=== PATIENT | male | born 1935 | race Caucasian/White ===

== ENCOUNTER 2016-12-01 23:31 | Emergency (ER) | payer MEDICARE, BC ==
[2016-12-02 00:17] LABS: Hematocrit 26 % (42-52); Hemoglobin 8.9 g/dl (14.0-18.0); Mean Corpuscular HGB Conc 34 g/dl (31-36); Mean Corpuscular Hemoglobin 32 pg (27-31); Mean Corpuscular Volume 94 fL (80-94); Mean Platelet Volume 7 um3 (7.4-10.4); Red Blood Count 2.81 10^6/ul (4.0-5.4); Red Cell Distribution Width 14 % (10.5-15); White Blood Count 7.2 10^3/ul (3.5-10.8)
[2016-12-02 00:33] LABS: Albumin 2.9 g/dL (3.2-5.2); BUN/Creatinine Ratio 24.1 (8-20); Calcium 8.4 mg/dL (8.6-10.3); EGFR African American 121.7 (>60); EGFR Non-African American 94.6 (>60); Magnesium 2.1 mg/dL (1.9-2.7); Potassium 3.5 mmol/L (3.5-5.0); Total Bilirubin 0.8 mg/dL (0.2-1.0); Total Protein 5.9 g/dL (6.4-8.9)
[2016-12-02 04:00] LABS: Urine Bilirubin Negative (Negative); Urine Glucose Negative (Negative); Urine Nitrite Negative (Negative)
--- NOTE | 2016-12-02 04:11 | ED ---
Agnes Carey SooYoung, scribed for Avery Pardo MD on 12/01/16 at 2351 . HPI Febrile Illness - HPI Summary HPI Summary: A 81 y/o M CHRISTINE presents to ED s/p aortic valve replacement last week with low- grade fever onset five days ago. Per , pt had valve replacement last week at [facility] and was released five days ago to [facility] for PT/OT. Per [facility]'s report, pt has been febrile since arrival five days ago, with maxT of 101.5 F recorded yesterday. Additionally, pt had high BP and low HR. - History of Current Complaint Chief Complaint: EDFever Time Seen by Provider: 12/01/16 23:40 Hx Obtained From: Patient, Family/Machine Packaging Technician, Medical Records Onset/Duration: Started Days Ago, Still Present Timing: Constant Initial Severity: Mild Current Severity: Mild Pain Intensity: 0 Pain Scale Used: 0-10 Numeric - Additional Pertinent History Primary Care Physician: MANPREET - Allergy/Home Medications Allergies/Adverse Reactions: Allergies Allergy/AdvReac Type Severity Reaction Status Date / Time No Known Allergies Allergy Verified 12/20/15 15:04 PMH/Surg Hx/FS Hx/Imm Hx Previously Healthy: No Cardiovascular History: Reports: Hx Angina, Hx Cardiomegaly, Hx Coronary Artery Disease, Hx Hypercholesterolemia, Hx Hypertension, Hx Valvular Heart Disease - aortic valve insufficiency, moderate to severe mitral regurgitation Denies: Hx Pacemaker/ICD GI History: Reports: Hx Gastroesophageal Reflux Disease, Other GI Disorders - constipation History: Reports: Hx Benign Prostatic Hyperplasia Sensory History: Reports: Hx Contacts or Glasses Denies: Hx Hearing Aid Opthamlomology History: Reports: Hx Contacts or Glasses Psychiatric History: Denies: Hx Panic Disorder - Surgical History Surgery Procedure, Year, and Place: GALLBLADDER. CATARACTS. OPEN HEART 1997 Infectious Disease History: No Infectious Disease History: Denies: Traveled Outside the [place] in Last 30 Days - Family History Known Family History: Positive: Cardiac Disease - parents and grandparents, Other - stroke - Social History Occupation: Retired Lives: With Family Alcohol Use: None Alcohol Amount: wine before dinner, a few times a week Substance Use Type: Reports: None Smoking Status (MU): Never Smoked Tobacco Review of Systems Positive: Fever Positive: Other - pos: high BP, low HR per [facility] report All Other Systems Reviewed And Are Negative: Yes Physical Exam Triage Information Reviewed: Yes Vital Signs On Initial Exam: Initial Vitals Temp Pulse Resp BP Pulse Ox 98.8 F 89 20 135/72 93 12/01/16 23:40 12/01/16 23:40 12/01/16 23:40 12/01/16 23:40 12/01/16 23:40 Vital Signs Reviewed: Yes Appearance: Positive: Well-Appearing, No Pain Distress Skin: Positive: Warm, Other - healing surgical composite bond technician/Face: Positive: Normal Head/Face Inspection Eyes: Positive: HERBERT ENT: Positive: Hearing grossly normal Neck: Positive: Supple, Nontender Respiratory/Lung Sounds: Positive: Clear to Auscultation, Breath Sounds Present Cardiovascular: Positive: RRR Abdomen Description: Positive: Nontender, Soft Bowel Sounds: Positive: Present Musculoskeletal: Positive: Strength/ROM Intact Neurological: Positive: Alert, Oriented to Person Place, Time Psychiatric: Positive: Affect/Mood Appropriate Diagnostics - Vital Signs Vital Signs Temp Pulse Resp BP Pulse Ox 12/01/16 23:50 99.1 F 12/01/16 23:44 98.8 F 88 16 135/72 94 12/01/16 23:40 98.8 F 89 20 135/72 93 - Laboratory Result Diagrams: 12/02/16 00:05 12/02/16 00:05 Lab Statement: Any lab studies that have been ordered have been reviewed, and results considered in the medical decision making process. - Radiology CXR Xray Interpretation: No Acute Changes Radiology Interpretation Completed By: ED Physician - EKG 0043 Cardiac Rate: NL - 77bpm EKG Rhythm: Sinus Rhythm ST Segment: Normal - no STEMI Re-Evaluation - Re-Evaluation 1 Re-Evaluation Time: 04:27 Change: Improved Comment: Discussing results and dispo with pt and family. Course/Dx - Course Course Of Treatment: Pt is a 81 y/o M BIBA presenting s/p aortic valve replacement last week with low-grade fever onset five days ago. Per , pt had valve replacement last week at [facility] and was released five days ago to [facility] for PT/OT. Per [facility]'s report, pt has been febrile since arrival five days ago, with maxT of 101.5 F recorded yesterday. Blood work and lab results are without significant abnormalities. EKG is NSR no STEMI. CXR is nml. UA is nml except ascorbic acid is present. Will D/C pt home to f/u with PCP tomorrow. - Diagnoses Provider Diagnoses: Fever Discharge - Discharge Plan Condition: Stable Disposition: HOME Patient Education Materials: Fever in Adults (ED) Referrals: Daron Lester MD [Primary Care Provider] - 1 Day Additional Instructions: Follow up with your primary care provider tomorrow. Please return to ED if you experience new or worsening symptoms. The documentation as recorded by the Agnes persaud SooYoung accurately reflects the service I personally performed and the decisions made by me, Avery Pardo MD.
[2016-12-02] MEDS ORDERED: Acetaminophen TAB* 325 MG ONE (04:51)
[2016-12-02] MEDS ORDERED: Acetaminophen TAB* 325 MG PO ONE (04:56)
[2016-12-02 05:00] VITALS: BP 135/57
--- NOTE | 2016-12-02 07:50 | RAD ---
HISTORY: Postop fever COMPARISONS: December 20, 2015 VIEWS: 4: Frontal dual-energy and lateral views of the chest. FINDINGS: CARDIOMEDIASTINAL SILHOUETTE: The cardiomediastinal silhouette is normal. ABDIRASHID: The abdirashid are normal. PLEURA: There is blunting of the costophrenic angles. LUNG PARENCHYMA: There is hyperinflation with flattening of the diaphragm and expansion of the AP diameter of the chest. ABDOMEN: The upper abdomen is clear. There is no subphrenic gas. BONES AND SOFT TISSUES: The patient is status post median sternotomy. OTHER: None. IMPRESSION: 1. COPD. 2. SMALL BILATERAL PLEURAL EFFUSIONS VERSUS CHRONIC PLEURAL THICKENING.
== END 2016-12-02 04:45 | disposition home or self-care (01) ==
LOC: ED 23:31
DX: J44.9 Chronic obstructive pulmonary disease, unspecified (principal); J90 Pleural effusion, not elsewhere classified; R50.9 Fever, unspecified
CPT/HCPCS: 36415; 71020; 80053; 81003; 83605; 83735; 85025; 87040; 93005; 99284; A9270-GY

== ENCOUNTER 2017-12-14 16:41 | Observation (INO) | payer MEDICARE, BC ==
[2017-12-14] MEDS ORDERED: NS 0.9% 1000 ML* 1,000 ML IV ONE (16:50)
--- NOTE | 2017-12-14 17:02 | ED ---
Neurological HPI - HPI Summary HPI Summary: Neurologist saw patient in room at 1654. This patient is an 82 year old M presenting to ED with a chief complaint of neurological deficit since around 1200 today. The CC is described as his balance being unsteady and his sx has progressively worsened at 1200. The patient rates the pain 0/10 in severity. Symptoms aggravated by nothing. Symptoms alleviated by nothing. Patient reports bilateral arm pain, light- headedness, and visual changes (unable to read, worsened after 1200). Patient denies numbness and weakness, any recent falls, CP, and SOB. Patient uses a cane. PMHx of TIA; no afib. - History of Current Complaint Chief Complaint: EDNeurologicalDeficit Stated Complaint: UNABLE TO AMBULATE Time Seen by Provider: 12/14/17 16:52 Hx Obtained From: Patient Onset/Duration: Sudden Onset - at 1200 today, Still Present Timing: Constant Current Severity: None Pain Intensity: 0 Pain Scale Used: 0-10 Numeric Aggravating: Nothing Alleviating: Nothing Associated Signs and Symptoms: Positive: Nothing - Patient reports bilateral arm pain, light-headedness, and visual changes (unable to read, worsened after 1200). Patient denies numbness and weakness, any recent falls, CP, and SOB. - Additional Pertinent History Primary Care Physician: [id number] - Allergy/Home Medications Allergies/Adverse Reactions: Allergies Allergy/AdvReac Type Severity Reaction Status Date / Time No Known Allergies Allergy Verified 12/14/17 16:49 Home Medications: Home Medications Aspirin EC TAB* [Ecotrin EC Low Dose 81 MG*] 81 mg PO QAM 12/14/17 [History Confirmed 12/14/17] C,E,Zinc,Copper 11/Lyuco3n/Lut [Ocuvite Adult 50 Plus Softgel] 1 cap PO QAM [History Confirmed 12/14/17] Cholecalciferol (Vitamin D3) [Vitamin D3] 1,000 unit PO DAILY 12/14/17 [History Confirmed 12/14/17] Finasteride TAB* [Proscar TAB*] 5 mg PO QAM 12/14/17 [History Confirmed 12/14/17 ] Losartan TAB* [Cozaar TAB*] 50 mg PO QAM 12/14/17 [History Confirmed 12/14/17] Lutein 20 mg PO QAM 12/14/17 [History Confirmed 12/14/17] Metoprolol Tartrate TAB* [Lopressor TAB*] 12.5 mg PO BID 12/14/17 [History Confirmed 12/14/17] Nystatin CREAM* [Nystatin Cream*] 1 applic TOPICAL BID 12/14/17 [History Confirmed 12/14/17] Omeprazole CAP* [Prilosec CAP* 20 MG] 40 mg PO BID 12/14/17 [History Confirmed 12/14/17] Ranolazine (NF) [Ranexa (NF)] 1,000 mg PO BID 12/14/17 [History Confirmed ] Rosuvastatin (NF) [Crestor (NF)] 5 mg PO QAM 12/14/17 [History Confirmed ] Terazosin CAP* [Hytrin CAP*] 10 mg PO QPM 12/14/17 [History Confirmed 12/14/17] amLODIPine TAB* [Norvasc 5 mg TAB*] 5 mg PO QPM 12/14/17 [History Confirmed ] PMH/Surg Hx/FS Hx/Imm Hx Cardiovascular History: Reports: Hx Angina, Hx Cardiomegaly, Hx Coronary Artery Disease, Hx Hypercholesterolemia, Hx Hypertension, Hx Valvular Heart Disease - aortic valve insufficiency, moderate to severe mitral regurgitation Denies: Hx Pacemaker/ICD GI History: Reports: Hx Gastroesophageal Reflux Disease, Other GI Disorders - constipation History: Reports: Hx Benign Prostatic Hyperplasia Sensory History: Reports: Hx Contacts or Glasses Denies: Hx Hearing Aid Opthamlomology History: Reports: Hx Contacts or Glasses Psychiatric History: Denies: Hx Panic Disorder - Surgical History Surgery Procedure, Year, and Place: GALLBLADDER. CATARACTS. OPEN HEART 1997 Infectious Disease History: No Infectious Disease History: Denies: Traveled Outside the [place] in Last 30 Days - Family History Known Family History: Positive: Cardiac Disease - parents and grandparents, Other - stroke - Social History Alcohol Use: None Alcohol Amount: wine before dinner, a few times a week Substance Use Type: Reports: None Smoking Status (MU): Never Smoked Tobacco Review of Systems Positive: Other - visual changes (unable to read) Negative: Chest Pain Negative: Shortness Of Breath Positive: Other - bilateral arm pain; denies any recent falls Neurological: Other - unsteady balance, light-headedness Negative: Weakness, Numbness All Other Systems Reviewed And Are Negative: Yes Physical Exam - Summary Physical Exam Summary: Appearance: Well appearing, no pain distress Skin: warm, dry, reflects adequate perfusion Head/face: normal Eyes: EOMI, HERBERT ENT: normal Neck: supple, non-tender Respiratory: CTA, breath sounds present Cardiovascular: pulses symmetrical, Blowing systolic murmur Abdomen: non-tender, soft Bowel Sounds: present Musculoskeletal: normal, strength/ROM intact Neuro: normal, sensory motor intact, A&Ox3, unsteady gait, mild ataxia NIH score is 0 GCS 15 Triage Information Reviewed: Yes Vital Signs On Initial Exam: Initial Vitals Temp Pulse Resp BP Pulse Ox 98 F 55 16 136/69 96 12/14/17 16:45 12/14/17 16:45 12/14/17 16:45 12/14/17 16:45 12/14/17 16:45 Vital Signs Reviewed: Yes Diagnostics - Vital Signs Vital Signs Temp Pulse Resp BP Pulse Ox 12/14/17 16:45 98 F 55 16 136/69 96 - Laboratory Result Diagrams: 12/14/17 17:07 12/14/17 17:07 Lab Statement: Any lab studies that have been ordered have been reviewed, and results considered in the medical decision making process. - Radiology CXR Radiology Interpretation Completed By: ED Physician - No acute disease. Pending radiologist official interpretation. See Red Venturestech. - CT Brain CT CT Interpretation Completed By: Radiologist - No intracranial mass or hemorrhage is noted. ED physician has reviewed this radiology report. C-spine CT CT Interpretation Completed By: Radiologist - No fracture of the cervical spine is identified. ED physician has reviewed this radiology report. - EKG 1801 Cardiac Rate: Bradycardia - 55 BPM EKG Rhythm: Sinus Bradycardia ST Segment: Non-Specific EKG Interpretation: normal axis, low voltage, long QT NIH Scale - NIH Scale Level of Consciousness: Alert/Keenly Responsive Ask Patient the Month and His/Her Age: Both Correct Ask Pt to Open/Close Eyes and Theology Teacher/Release Non-Paretic Hand: Both Correctly Best Gaze (Only Horizontal Eye Movement): Normal Visual Field Testing: No Visual Loss Facial Paresis-Pt to Smile & Close Eyes or Grimace Symmetry: Normal/Symmetrical Motor Function - Right Arm: No Drift-Holds 10 Seconds Motor Function - Left Arm: No Drift-Holds 10 Seconds Motor Function - Right Leg: No Drift-Holds 10 Seconds Motor Function - Left Leg: No Drift-Holds 10 Seconds Limb Ataxia-Must be out of Proportion to Weakness Present: Absent Sensory (Use Pinprick to Test Arms/Legs/Trunk/Face): Normal Best Language (Describe Picture, Name Items): No Aphasia Dysarthria (Read Several Words): Normal Extinction and Inattention: No Abnormality Total Score: 0 Course/Dx - Course Course Of Treatment: Patient presents with worsening ataxia since noon today. This appears to be an acute worsening of her chronic condition. Neurology evaluated the patient on arrival to the department. His NIH stroke score is 0. Neurology found that he had some sensory differences between left and right and wish to have a neck CT performed as well. Remainder laboratories are noncontributory. Neurology recommended observation and the patient was admitted through the hospitalist service in stable condition. - Differential Dx Differential Diagnoses Neuro: Positive: Other - CVA/TIA, Lyme disease, hypovolemia, vertigo, medication reaction - Diagnoses Provider Diagnoses: Ataxia, Generalized weakness - Physician Notifications Discussed Care Of Patient With: Noe Grissom Time Discussed With Above Provider: 18:28 Instructed by Provider To: Other - Consulted Dr. Grissom who accepts the patient for admission. Discharge - Sign-Out/Discharge Documenting (check all that apply): Patient Departure - Discharge Plan Condition: Fair Disposition: TRANSFER TO OB ([facility]) - Billing Disposition and Condition Condition: FAIR Disposition: Transfer to OB ([facility]) - Attestation Statements Document Initiated by Scribe: Yes Documenting Scribe: Ravinder Melgar Provider For Whom Marnie is Documenting (Include Credential): Jaxson Coleman MD Scribe Attestation: Ravinder Carey, scribed for Jaxson Coleman MD on 12/14/17 at 1923. Scribe Documentation Reviewed: Yes Provider Attestation: The documentation as recorded by the Ravinder persaud accurately reflects the service I personally performed and the decisions made by , Jaxson Coleman MD
[2017-12-14 17:16] LABS: ABS Basophils 0 10^3/ul (0-0.2); ABS Eosinophils 0 10^3/ul (0-0.6); ABS Lymphocytes 0.6 10^3/ul (1.0-4.8); ABS Monocytes 0.3 10^3/ul (0-0.8); ABS Neutrophils 3.9 10^3/ul (1.5-7.7); ABS Nucleated RBC 0 10^3/ul; Eosinophil % 0.5 % (0-6); Hematocrit 37 % (42-52); Hemoglobin 12.8 g/dl (14.0-18.0); Lymphocyte % 11.9 % (25-47); Mean Corpuscular HGB Conc 34 g/dl (31-36); Mean Corpuscular Hemoglobin 32 pg (27-31); Mean Corpuscular Volume 94 fL (80-94); Mean Platelet Volume 7.3 um3 (7.4-10.4); Nucleated Red Blood Cells % 0; Platelet Count 146 10^3/ul (150-450); Red Blood Count 3.95 10^6/ul (4.00-5.40); Red Cell Distribution Width 12 % (10.5-15); White Blood Count 4.8 10^3/ul (3.5-10.8)
[2017-12-14 17:22] LABS: INR 1.07 (0.77-1.02)
[2017-12-14 17:32] LABS: EGFR Non-African American 80.2 (>60)
--- NOTE | 2017-12-14 17:56 | RAD ---
Indication: Ataxia. CT of the brain was performed without IV contrast. Ventricular structures are midline. No midline shift is noted. The extra-axial spaces are unremarkable. There is no evidence of intracranial mass or hemorrhage. No other high or low density lesions are identified. When compared to previous exam of December 20, 2015 no significant change is noted. Mastoid air cells and paranasal sinuses are otherwise unremarkable. Overall no changes noted since previous exam December 20, 2015. IMPRESSION: No intracranial mass or hemorrhage is noted.
--- NOTE | 2017-12-14 17:57 | RAD ---
Indication: Ataxia, sensory changes. CT of the cervical spine was obtained in the axial plane. Sagittal and coronal reconstructed images were obtained. The skull base demonstrates no evidence of fracture. C1 ring is intact. The vertebral bodies appear normal in height and alignment with no spondylolisthesis. No fracture is identified. There is mild degenerative disc disease at C3-C4. No central or foraminal stenosis is noted. The remainder of the cervical spine demonstrates no fracture. All the intervertebral foramen appear patent. IMPRESSION: No fracture of the cervical spine is identified.
[2017-12-14] MEDS ORDERED: Acetaminophen TAB* 325 MG PO PRN (18:37)
[2017-12-14] MEDS ORDERED: Ondansetron INJ* 2 MG/ML VIAL IV PRN (18:37)
[2017-12-14] MEDS ORDERED: Nitroglycerin TAB 0.4 MG* 0.4 MG TAB SL PRN (18:39)
[2017-12-14] MEDS ORDERED: Enoxaparin(*) 40 MG/0.4 ML SYR SUBCUT SCH ×2 (19:00→22:00)
[2017-12-14] MEDS ORDERED: Gadoteridol* (CONTRAST) 279.3 MG/ML 10 ML IV ONE (20:36)
[2017-12-14] MEDS ORDERED: Ranolazine (NF) 500 MG TAB PO SCH (21:00)
[2017-12-14] MEDS ORDERED: Gadobenate* (CONTRAST) 529 MG/ML 10 ML SDV IV ONE (21:08)
--- NOTE | 2017-12-14 21:18 | CONS ---
NEUROLOGY CONSULTATION REPORT: DATE OF CONSULT: 12/14/17 Dallin Manzanares was called due to concern of acute ataxia. CHIEF COMPLAINT: Sudden onset of balance trouble. PRIMARY ER ATTENDING: Dr. Jaxson Coleman. HISTORY OF PRESENT ILLNESS: Mr. Jayy Kee is an 82-year-old right-handed man with history of TIA 1 year ago and reported stroke with similar presentation 2 years ago, who presented to [facility] after onset of gait imbalance. The patient has been having trouble with his gait over the last 6 months. He saw a neurologist in [place] in July of 2017 for balance problems. The neurologist had told him that there is some degeneration of the nerves in the lower extremity but no further workup or recommendation was made. The patient was working in his barn all day yesterday. He then went to the barn today and was working for about an hour when suddenly he closed the barn and went back in the house at around 12 o'clock. His was surprised because he typically works in the barn up until 4 p.m. When asked what is going on, the patient stated that he keeps swaying towards a nonspecific side and feeling like he is about to fall. He does feel lightheaded. He has trouble going up the steps when reaching up above his head because every time he goes up the step , he feels that he is going to fall. He was given a cane for support, which is very unusual for him. The patient then went to his room and his left the house for about an hour. When she came back, the patient was in the bathroom and he was having trouble walking back to the bedroom. This has never happened before and it alerted the patient's spouse, who immediately brought the patient to the ED. The patient denied any focal weakness or paresthesias. The patient denied any headache, double vision, or blurry vision. The patient is on aspirin regularly. The patient stated that he has had similar presentation in the past and he was diagnosed with a stroke at that time. I reviewed the patient's MRI from 2015. There is no evidence of any large ischemic or hemorrhagic infarction, but he does have nonspecific small vessel disease with diffuse atrophy. He denied any neck pain or low back pain. He denied any numbness or tingling sensation in the hands or feet. The patient has had progressive memory loss over the last 1 year. He is forgetting objects, names. He was having trouble reading his book today, which he enjoys doing on a daily basis. PAST MEDICAL HISTORY: The patient had a history of TIA, stroke, coronary artery disease, [id number] mitral regurgitation, aortic valve replacement, BPH, GERD. PAST SURGICAL HISTORY: He had cataract surgery, cholecystectomy, tonsillectomy , CABG in 1996, and had an aortic valve replacement last year. MEDICATIONS: 1. Nitroglycerin. 2. Terazosin 10 mg p.o. q.p.m. 3. Rosuvastatin 5 mg p.o. q.a.m. 4. Ranolazine 1000 mg p.o. twice daily. 5. Omeprazole 40 mg p.o. b.i.d. 6. Nystatin 1 application topical b.i.d. 7. Metoprolol 12.5 mg p.o. b.i.d. 8. Lutein 20 mg capsule. 9. Losartan 50 mg p.o. q.a.m. 10. Finasteride 5 mg p.o. q.a.m. 11. Aspirin 81 mg p.o. q.a.m. 12. Amlodipine 5 mg p.o. q.p.m. 13. Vitamin D 1000 units p.o. daily. ALLERGIES: No known drug allergies. FAMILY HISTORY: No family history of stroke or seizures. SOCIAL HISTORY: The patient is retired. He denied any recent tobacco or alcohol use. He is and he lives with his spouse. He does drink wine at dinner. REVIEW OF SYSTEMS: A 14-point review of systems was obtained and otherwise negative except for what was mentioned in the HPI. PHYSICAL EXAM: Vital Signs: Temperature of 98, pulse 55, respiratory rate of 16, oxygen saturation 96%, blood pressure of 136/69. General: Well-nourished, well- developed man, in no acute distress. Head is normocephalic, atraumatic. Eyes: Conjunctivae/corneas are clear. Neck is supple and symmetrical with no carotid bruit. Lungs are clear to auscultation bilaterally. Cardiovascular: Regular rhythm. Normal S1, S2. Extremities: Normal range of motion with no cyanosis. Skin: No skin lesions or laceration. Psych: Affect is broad and normal mood. Neurological Examination: Mental Status: Awake, alert, and oriented to person, place, time, and general circumstances. Speech and language including expression, naming, repetition, and comprehension were assessed and found to be normal. The patient does have trouble with memory recall, could not spell the word world backwards, could not calculate. Cranial Nerves: Normal confrontation bilaterally. Pupils are mid range and reactive to light. Normal consensual response. Sensation is intact on the forehead, cheeks , and jaw region. There is no facial droop. He is able to hear throughout the history process. Symmetrical palate elevation. Normal strength against resistance. Tongue is symmetrical and midline with no atrophy. Motor Examination: No abnormal movements or pronator drift. Normal bulk and tone throughout. There is no fasciculation. He has got good range of motion with normal strength throughout all 4 extremities. Reflexes: Right/left, brachioradialis 2/2, biceps 2/2, triceps 1/1, patella is 1/1, ankle 0/0. Plantar, flexor/flexor. Sensation is intact to light touch throughout. He does have a distal to proximal gradient demarcated around the knees bilaterally. He has absent vibration at the great toes, which is normal for age but proprioception is intact. Coordination: Normal [id number]. Gait: Wide-based, hesitant, cautious gait but no ataxia. LABORATORY DATA: WBC 4.8, hemoglobin 12.8, hematocrit 37. LDL 82, HDL 55, cholesterol 156. Sodium 134, potassium 4.2, chloride 104, creatinine 0.91. ASSESSMENT AND PLAN: Mr. Jayy Kee is an 82-year-old man with history of coronary artery disease, reported stroke, and transient ischemic attacks in the past, who presented with an acute on chronic gait imbalance. The patient suddenly had trouble with ambulation and felt off balance at approximately 12 a.m. today. NIH Stroke Scale was 0. Therefore, he is not a candidate for IV tPA or mechanical thrombectomy. I suspect that the patient possibly has underlying neuropathy that is contributing to his gait disturbance. However, the acuity of his gait off balance makes me concern for a possible intracranial problem such as a cerebellar infarction. I recommend obtaining an MRI of the brain, MRA of the head without contrast. Please obtain a transthoracic echo to look for any atrial thrombus. In addition, please obtain a PT/OT evaluation and treatment. The patient may be dehydrated as he was complaining of lightheadedness prior to these episodes, so therefore, please start him on IV fluids, possibly given him 1 L over the next 10 hours. Continue aspirin therapy for now until we further work up the cause of his neurological deficits. Interestingly, he did have a sensory level around the C7 to C8 region on the left side. If the intracranial workup is negative, then we will proceed with evaluating for possible cervical spinal stenosis due to cervical spondylosis. I also suspect the patient has dementia given his progressive memory loss over the last 1 year. In patients with dementia, there could be gait abnormality such as abasia-estasia but I do not think this will be an acute onset. . Please complete the workup by obtaining TSH, free T4, vitamin B12, hemoglobin A1c to evaluate for secondary cause of neuropathy. TIME SPENT: I spent a total of 70 minutes and greater than 50% of that was spent directly reviewing the medical chart, obtaining history, examining the patient, education counseling, and discussing the treatment plan as discussed above. I will continue to follow. The patient is pending a CT head and a CT neck for further evaluation. [id number]/[facility] #: [id number] [facility]
--- NOTE | 2017-12-14 21:28 | RAD ---
EXAM: MR Head Without Intravenous Contrast CLINICAL HISTORY: 82 years old, male; Signs and symptoms; Dizziness and walking, difficulty; Patient HX: C/O acute onset of dizziness, unsteady gait and difficulty walking at noon today. Symptoms resolved at this time; Additional info: Concern for CVA. Pt is very kyphotic- unable to fit anterior portion of head coil- was only able to fit csp coil-some loss of anterior signal TECHNIQUE: Magnetic resonance images of the head/brain without intravenous contrast in multiple planes. COMPARISON: MRAHEAD WO MRA HEAD W/O 12/14/2017 8:24 PM FINDINGS: Brain: No acute infarct. There are small rounded SWI signal in the left occipital and parietal lobe likely representing chronic microhemorrhages. Minimal T2/flair hyperintensities in the periventricular region consistent with chronic microvascular ischemic changes. Ventricles: Unremarkable. No ventriculomegaly. Bones/joints: Unremarkable. Sinuses: Unremarkable as visualized. No acute sinusitis. Mastoid air cells: Mastoid air cells effusions right greater than left. Orbits: Bilateral cataract surgery. Other findings: No acute hemorrhage. IMPRESSION: No acute infarct or hemorrhage. Small rounded SWI signal in the left occipital and parietal lobe likely representing chronic microhemorrhages. Minimal chronic microvascular ischemic changes. Bilateral mastoid air cell effusions, right greater than left.
--- NOTE | 2017-12-14 21:47 | PN ---
Progress Note - Progress Note Date of Service: 12/14/17 Note: Discussed finding of chronic microhemorrhages on MRI with Dr Grissom, neurology who advised against use of dual anti-platelet therapy, but agreed with continuing his aspirin & DVTp enoxaparin.
[2017-12-14] MEDS: NS 0.9% 1000 ML* 1,000 ML IV SCH (22:32)
[2017-12-14] MEDS: Omeprazole CAP* 20 MG PO SCH (22:35)
[2017-12-14] MEDS: Metoprolol Tartrate TAB* 25 MG PO SCH (22:35)
[2017-12-14] MEDS: CMCS Ranolazine (NF) 500 MG TAB PO SCH (22:50)
--- NOTE | 2017-12-15 00:04 | HP ---
CC: Dr. Lester; Dr. Avery Powers. * ADMISSION HISTORY AND PHYSICAL: DATE OF ADMISSION: 12/14/17 PRIMARY CARE DOCTOR: Dr. Lester. OUTPATIENT NEUROLOGIST: Dr. Avery Powers. ATTENDING PROVIDER: Dr. Chávez * (DICTATED BY JOHANNY MCGARRY) CHIEF COMPLAINT: Loss of balance. HISTORY OF PRESENT ILLNESS: Mr. Kee is an 82-year-old male with past medical history significant for coronary artery disease, carotid stenosis, hypertension, hyperlipidemia, and idiopathic neuropathy, who presents to the emergency permit with 6 months of worsening balance issues, which became acutely worse approximately around noon today with inability to keep balance, inability to climb ladders and constant feeling as if he is going to fall. The patient denies any diane vertigo, nausea, vomiting, focal weakness, palpitations , shortness of breath, or chest pain. The patient did have an episode of chest pain last week, which he took nitroglycerin, which promptly resolved this. The patient had to take nitroglycerin relatively frequently for chest pain more in the spring when he is in [place], but this most recent episode was the first time in approximately 6 months he has to take it. The patient had a TIA in [place] in May 2015 and at that time had a rather extensive evaluation he describes, but there were no discrete findings that he can remember. The patient then had a stroke in November 2015, for which he received TPA, where his symptoms mainly resolved, which include expressive aphasia and balance issues. The patient underwent physical therapy after that for balance and now feels like until 6 months ago he was back to his baseline. The patient was seen by a vascular surgeon at [place] after his stroke and no intervention was recommended, according to the family. The patient today denies any recent illnesses. The patient drinks several bottles of water a day. The patient drinks 1 glass of alcohol in the evening. The patient recently was recommended by Dr. Gallardo, his primary care doctor while he is in [place] to stop his Plavix this spring. It is unclear the reasoning for this besides that he has already on aspirin for antiplatelet therapy and it had been over 8 years since his recent stroke. The patient has been having worsening issues with memory loss. The patient has had no other acute episodes like this. The patient had no other focal deficits including word finding difficulty or facial droop. The patient was exerting himself significantly including carrying ladders around his barn when these symptoms developed. Due to concern for TIA, we were asked to evaluate the patient for admission. The patient describes today earlier in the morning before he had the most overt symptoms of dizziness, an inability to read due to possible double vision, which he states has resolved at this point, has never occurred before. PAST MEDICAL HISTORY: Coronary artery disease, BPH, GERD, neuropathy, hyperlipidemia, hypertension, dementia, squamous cell carcinoma, aortic regurgitation, status post aortic valve placement in October 2016. PAST SURGICAL HISTORY: CABG in 1996, cholecystectomy, cataract surgery, tonsillectomy, open heart aortic valve placement in October 2016. MEDICATIONS: 1. Nitroglycerin 0.4 mg p.o. q.5 minutes as needed for angina. 2. Terazosin 10 mg p.o. daily. 3. Rosuvastatin 5 mg p.o. daily. 4. Ranexa 1000 mg b.i.d. 5. Omeprazole 40 mg b.i.d. 6. Nystatin cream 1 application topical b.i.d. 7. Ocuvite 1 tab p.o. daily. 8. Metoprolol tartrate 12.5 mg b.i.d. 9. Lutein 20 mg p.o. b.i.d. 10. Losartan 50 mg p.o. daily. 11. Finasteride 5 mg p.o. daily. 12. Aspirin 81 mg p.o. daily. 13. Amlodipine 5 mg p.o. daily. 14. Vitamin D3 1000 units p.o. daily. ALLERGIES: No known drug allergies. FAMILY HISTORY: The patient's father had coronary artery disease and stroke. The patient's mother had coronary artery disease, as does his grandparents. The patient has no other known medical history in his siblings or children. SOCIAL HISTORY: The patient has never smoked. The patient drinks 3 to 4 alcoholic beverages a week. The patient denies illicit drug use. 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 The patient is and has 2 children. The patient would like his surrogate decision maker to be his , Codie Kee. REVIEW OF SYSTEMS: A 14 point review of systems was reviewed and is negative except as above. PHYSICAL EXAMINATION GENERAL: The patient is an 82-year-old male who appears stated age, sitting comfortably in bed, in no distress. VITAL SIGNS: At the time of evaluation, temperature 98.0, pulse rate 55, respirations 16, oxygen saturate 96% on room air, blood pressure 136/69. HEENT: Head normocephalic, atraumatic. Sclerae anicteric. No conjunctival injection. Nasal mucosa moist. Oral mucosa moist. No pharyngeal erythema, discharge or exudate NECK: Supple, nontender. No lymphadenopathy. No carotid bruits auscultated. No JVD. RESPIRATORY: Clear to auscultation bilaterally. No wheezes, rales or rhonchi. Good air exchange bilaterally. CARDIAC: Grade 2/6 systolic ejection murmur, heard best at the right upper sternal border. No other clicks, murmurs, gallops or rubs. Pulses 2+ in bilateral dorsalis pedis, posterior tibialis, and radial areas. Trace bilateral lower extremity edema noted. ABDOMEN: Soft, nontender, nondistended. Bowel sounds present. Normoactive in all 4 quadrants. No hepatosplenomegaly. No abdominal bruits auscultated. No hepatojugular reflux. NEUROLOGIC: Cranial nerves II through XII intact. No nystagmus. No focal field deficit to confrontation. No diplopia. No esotropia. Symmetrical forehead wrinkling. No facial droop. Strength 4-/5 throughout the patient's muscle group distally and proximally. Sensation intact to light touch and bilaterally upper and lower extremities distally and proximally. Reflexes 1+ on bilateral biceps and patellar areas, absent in the Achilles area. Babinski is downgoing bilaterally. [id number] and rapid finger taps performed without difficulty. The patient is not ataxic in his gait. The patient is unable to walk on his heels or toes. SKIN: Senile purpura. No other rash. PSYCHIATRIC: Pleasant and cooperative. DIAGNOSTIC STUDIES/LAB DATA: White blood cells 4.0, hemoglobin 12.8, platelet count 146, INR 1.07, APTT 30.1. Sodium 134, potassium 4.2, chloride 104, carbon dioxide 24, anion gap 16, BUN 12, creatinine 0.91, glucose 105, lactic acid 0.6, calcium 9.1, bilirubin 0.7, AST 17, ALT 13, alkaline phosphatase 61, troponin I 0.00, protein 6.6, albumin 4.1, globulin 2.5, triglycerides 93, cholesterol 156, LDL cholesterol 82, HDL cholesterol 55.9, serum alcohol less than 10. STUDIES: Chest x-ray shows no active cardiopulmonary disease, status post thoracotomy. EKG shows normal sinus rhythm. No ST segment abnormalities, possible left atrial enlargement. No other hypertrophy. Normal R-wave progression, rate of 55, QTc of 506. No other abnormalities. Similar to previous exam. Cervical spine CT read as no fractures of cervical spine identified. Brain CT from 12/14/17 read as no intracranial mass or hemorrhage. ASSESSMENT PLAN AND IMPRESSION: Mr. Kee is an 82-year-old male with past medical history significant for coronary artery disease, carotid artery stenosis , hypertension, aortic stenosis, hyperlipidemia, hypertension and mild dementia who presents to the emergency department for his third episode of possible cerebrovascular disease in the past 3 years. The patient has no residual deficits at this point. The patient will be admitted to the hospital for a brain MRI, MRA of his neck carotid ultrasound, transthoracic echocardiogram, and ongoing neurological consultation. 1. Possible transient ischemic attack. The patient has had rather abrupt onset of unsteadiness, which has been going on for 6 months in a worsening pattern, but got acutely worse today with the feeling of unsteadiness without diane vertigo. The patient has no signs of cerebrovascular accident on his CT of his brain. The patient's symptoms seem at this point to have resolved. The patient has known atherosclerotic vascular disease. The patient's symptoms are unlikely due to his carotid stenosis. The patient might have had issues of subclavian steal. The patient will have a MRI of his head and neck as well as carotid ultrasound. It is unlikely the patient's symptoms are due to thromboembolic disease; however, he was monitored on telemetry and have an echocardiogram to assess for the functioning of his valves as well as assess for patent foramen ovale or clot in the left atrial appendage. The patient will not be anticoagulated at this time. The patient will be continued on aspirin. The patient was recently told to stop his Plavix due to the coronary artery disease, consideration for Plavix pending the results of the MRI and the MRA from the morning will be considered. The patient will have neurological checks, dysphagia screening. The patient's symptoms may be related to hypovolemia, felt due to his exertion. The patient had 1 L of normal saline in the emergency department and we will have 2 more. The patient will be continued on his blood pressure medication. He is currently normotensive. The patient had a lipid profile, which unless a stroke is identified on his exam, is within normal limits. However, if the patient has an acute stroke, an LDL cholesterol goal 70 should be attempted to be reached. The patient will be continued on Crestor at 5 mg daily or formulary equivalent at this time. 2. Coronary artery disease. The patient will have a transthoracic echocardiogram. He will be continued on his aspirin, and Lipitor. The patient has negative troponin. The patient is not having chest pain. The patient will have nitroglycerin available if he does have chest pain while in the hospital. Further cardiologic evaluation should be entertained at that time, however, this is unlikely related to his current presentation. 3. Hypertension. Continue the patient's terazosin, amlodipine, losartan. The patient will have orthostatic vital signs performed due to presence of terazosin as possibly contributing to his dizziness, unsteadiness over the course of several months, though the patient has never had pre-syncope. 4. Benign prostatic hyperplasia. Continue terazosin and finasteride. The patient has been having worsening of his benign prostatic hyperplasia symptoms including urinary frequency and nocturia over the past several months. The patient will have a urinalysis. The patient does not have any signs of urinary retention or urinary tract infection. 4. Hyperlipidemia. Continue rosuvastatin as above. 5. Neuropathy. We will order hemoglobin A1c and a vitamin B12 level as these could be both be related to his current presentation. The patient was previously diagnosed with idiopathic neuropathy and further lab testing will be dependent on the results of the studies. 6. DVT prophylaxis. The patient will be on Lovenox for DVT prophylaxis. 7. Code status. The patient would like to be a full code. The patient's surrogate decision maker will be his , Codie Kee as above. 8. FEN. The patient will have fluids as above and a heart healthy diet without caffeine after he passes his dysphagia screening. 9. Disposition. The patient will be admitted to observation to the hospital. TIME SPENT: Approximately 75 minutes were spent on this admission, 45 minutes of which was spent [id number] with the patient obtaining history and physical and discussing treatment plan. The plan has been discussed with my attending, Dr. Chávez, and he is in agreement. JOHANNY MCGARRY [id number]/[facility] #: [id number] FERNANDO
[2017-12-15 06:20] LABS: ABS Basophils 0 10^3/ul (0-0.2); ABS Eosinophils 0.1 10^3/ul (0-0.6); ABS Monocytes 0.4 10^3/ul (0-0.8); ABS Nucleated RBC 0 10^3/ul; Eosinophil % 2.8 % (0-6); Hematocrit 33 % (42-52); Hemoglobin 11.5 g/dl (14.0-18.0); Lymphocyte % 21.8 % (25-47); Mean Corpuscular HGB Conc 35 g/dl (31-36); Mean Corpuscular Hemoglobin 33 pg (27-31); Mean Corpuscular Volume 94 fL (80-94); Mean Platelet Volume 7.7 um3 (7.4-10.4); Nucleated Red Blood Cells % 0.1; Platelet Count 124 10^3/ul (150-450); Red Blood Count 3.49 10^6/ul (4.00-5.40); Red Cell Distribution Width 12 % (10.5-15); White Blood Count 4.5 10^3/ul (3.5-10.8)
[2017-12-15 06:36] LABS: EGFR Non-African American 86.7 (>60)
--- NOTE | 2017-12-15 07:01 | RAD ---
INDICATION: Neurologic changes code haile. COMPARISON: Comparison is made with a prior chest x-ray study from December 02, 2016. TECHNIQUE: A portable view of the chest was obtained. FINDINGS: The patient is status post sternotomy. The heart is within normal limits in size. The lungs are underinflated and clear. No pleural effusion is seen. IMPRESSION: NO EVIDENCE FOR ACUTE DISEASE. R0
--- NOTE | 2017-12-15 07:44 | RAD ---
HISTORY: Possible CVA, Known Carotid Stenosis COMPARISONS: None TECHNIQUE: Multiple transverse and longitudinal ultrasound images were obtained of the carotid and vertebral arteries bilaterally, using grayscale, color Doppler, and spectral Doppler imaging. FINDINGS: Measurement of carotid stenosis is based on flow velocity parameters that correlate the residual internal carotid artery diameter with [place] Symptomatic Carotid Endarterectomy Trial (NASCET)-based stenosis levels. RIGHT: Intima: There is diffuse intimal thickening with more focal atheroma formation at the bifurcation. Velocities: Right internal carotid artery maximum peak systolic velocity: 93 cm/s Right common carotid artery maximum peak systolic velocity: 163 cm/s Right internal carotid artery/common carotid artery ratio: 1.3 Waveforms: There is no spectral broadening. Right Vertebral: The right vertebral artery flow is antegrade. LEFT: Intima: There is diffuse intimal thickening with more focal atheroma formation at the bifurcation. Velocities: Left internal carotid artery maximum peak systolic velocity: 144 cm/s Left common carotid artery maximum peak systolic velocity: 140 cm/s Left internal carotid artery/common carotid artery ratio: 1.8 Waveforms: There is no spectral broadening. Left Vertebral: The left vertebral artery flow is antegrade. OTHER FINDINGS: None. IMPRESSION: 1. NO HEMODYNAMICALLY SIGNIFICANT STENOSIS OF THE RIGHT INTERNAL CAROTID ARTERY BY FLOW VELOCITY MEASUREMENTS. THIS CORRESPONDS TO A LUMINAL DIAMETER OF LESS THAN 50% STENOSIS BY NASCET CRITERIA. 2. ELEVATED PEAK SYSTOLIC VELOCITIES OF THE LEFT INTERNAL CAROTID ARTERY CONSISTENT WITH LEFT INTERNAL CAROTID ARTERY STENOSIS IN 50% AND 69% BY NASCET CRITERIA.. CPT II Codes: 3100F
[2017-12-15] MEDS: Omeprazole CAP* 20 MG PO SCH (08:53)
[2017-12-15] MEDS ORDERED: Aspirin EC TAB* 81 MG TAB.EC PO SCH ×2 (09:00)
[2017-12-15] MEDS ORDERED: Losartan TAB* 25 MG PO SCH (09:00)
[2017-12-15] MEDS ORDERED: Atorvastatin* 10 MG TAB PO SCH (09:00)
[2017-12-15] MEDS ORDERED: Finasteride TAB* 5 MG PO SCH (09:00)
[2017-12-15] MEDS ORDERED: Metoprolol Tartrate TAB* 25 MG PO SCH (09:10)
[2017-12-15] MEDS: Metoprolol Tartrate TAB* 25 MG PO SCH (09:16)
[2017-12-15] MEDS: CMCS Ranolazine (NF) 500 MG TAB PO SCH (09:17)
--- NOTE | 2017-12-15 09:30 | ECHO ---
Patient: LAMONT PAYNE [facility] Rec#: [id number] : 1935 Date: 12/15/2017 Age: 82y Height: 178 cm / 70.1 in Weight: 80 kg / 176.3 lbs Sex: M BSA: 1.98 Room#: 439 Admit Date#: 12/14/2017 Type: Inpatient Referring: Bernardino Nickerson Reading: Harshal George MD [employer] Operations Staff Officer: Nieves Martinez RDCS,RDMS CC: Daron Lester MD Transthoracic Echocardiogram Indication: CVA BP: 125/60 HR: 66 Rhythm: NSR Findings History: AVR (bovine), CAD, HTN, HLD Technical Comments: The study quality is good. Left Ventricle: The left ventricular chamber size is normal. Mild concentric left ventricular hypertrophy is observed. The estimated ejection fraction is 55-60%. Abnormal left ventricular diastolic function is observed. Abnormal left ventricular diastolic filling is observed, consistent with impaired relaxation. Left Atrium: The left atrium is moderate to severely dilated. Right Ventricle: The right ventricular chamber size and systolic function are within normal limits. Right Atrium: The right atrium is mild to moderately dilated. The bubble study is negative. A patent foramen ovale is not demonstrated with color Doppler and agitated contrast. Aortic Valve: There is a trace of aortic regurgitation. The mean gradient of the aortic valve is 12 mmHg. The aortic valve area, by peak velocities, is calculated at 1.3 cm2. A bio-prosthetic aortic valve is present. The prosthetic aortic valve leaflets are normal. The bio-prosthetic aortic valve appears to be functioning normally. Mitral Valve: The mitral valve leaflets are mildly thickened. There is moderate mitral regurgitation. dual jets. There is no evidence of mitral stenosis. Tricuspid Valve: The tricuspid valve leaflets are normal. There is moderate tricuspid regurgitation. The tricuspid regurgitant jet is eccentric. There is evidence of mild pulmonary hypertension. Pulmonic Valve: The pulmonic valve appears normal. There is mild to moderate pulmonic regurgitation. Pericardium: There is no significant pericardial effusion. Aorta: The aortic root appears normal. There is no dilatation of the aortic arch. Pulmonary Artery: The main pulmonary artery appears normal. Venous: The inferior vena cava is not visualized. Contrast: Intravenous agitated saline contrast was used to assess intracardiac shunting. Conclusions Mild concentric left ventricular hypertrophy is observed. The estimated ejection fraction is 55-60%. Abnormal left ventricular diastolic filling is observed, consistent with impaired relaxation. The left atrium is moderate to severely dilated. The right atrium is mild to moderately dilated. The bubble study is negative. The bio-prosthetic aortic valve appears to be functioning normally. There is moderate mitral regurgitation. There is moderate tricuspid regurgitation. The tricuspid regurgitant jet is eccentric. There is evidence of mild pulmonary hypertension. There is mild to moderate pulmonic regurgitation. Compared to the partial OTONIEL report of , the [place] aortic valve with moderate to severe AI has been replaced by a bioprosthetic valve with normal function, the MR has increased from mild then to moderate now. The LV function is similar. The TR has increased from mild then to moderate now. Measurements Name Value Normal Range RVIDd (AP) 2D 4 cm (0.9 - 2.6) RVDdMajor (2D) 3.2 cm (2.2 - 4.4) RAd ISD 4CH 5.7 cm (3.4 - 4.9) RA (A4C)W 3.6 cm (2.9 - 4.6) IVSd (2D) 1.1 cm (0.6 - 1) LVPWd (2D) 1.1 cm (0.6 - 1) LVIDd (2D) 4.2 cm (3.6 - 5.4) LVIDs (2D) 2.4 cm - LV FS (2D) 42 % (25 - 45) Aortic Annulus 2 cm (1.4 - 2.6) Ao root diameter (2D) 3.5 cm (2.1 - 3.5) Ascending Ao 3.4 cm (2.1 - 3.4) Aortic arch 3 cm (1.8 - 3.4) LA dimension (AP) 2D 4.7 cm (2.3 - 3.8) LAd ISD 4CH 6.9 cm (2.9 - 5.3) LA ISD 4CH W 4.7 cm (2.5 - 4.5) Name Value Normal Range LA ESV BP (A/L) index 48 ml/m2 - Name Value Normal Range MV E-wave Vmax 1.1 m/sec - MV deceleration time 190 msec - MV A-wave Vmax 0.6 m/sec - MV E:A ratio 1.9 ratio - LV septal e' Vmax 0.06 m/sec - LV lateral e' Vmax 0.09 m/sec - LV E:e' septal ratio 17.5 ratio - LV E:e' lateral ratio 13 ratio - Name Value Normal Range AV Vmax 2.5 m/sec - AV VTI 61 cm - AV peak gradient 25 mmHg - AV mean gradient 12 mmHg - LVOT diameter 2 cm - LVOT Vmax 1 m/sec - LVOT VTI 26 cm - LVOT peak gradient 4 mmHg - LVOT mean gradient 2 mmHg - DOI (VTI) 0.4 ratio - AXEL (continuity Vmax) 1.3 cm2 - AXEL (continuity VTI) 1.3 cm2 - Name Value Normal Range MV Vmax 1.2 m/sec - MV VTI 40 cm - MV peak gradient 6 mmHg - MV mean gradient 2 mmHg - MV PHT 101 msec - MVA (PHT) 2.2 cm2 - MVA (continuity VTI) 2.1 cm2 - Name Value Normal Range TR Vmax 2.93 m/sec - TR peak gradient 34 mmHg - RAP 3 mmHg - RVSP 37 mmHg - Name Value Normal Range PV Vmax 0.6 m/sec - PV peak gradient 1.4 mmHg -
--- NOTE | 2017-12-15 10:22 | RAD ---
HISTORY: Carotid Stenosis, Concern For CVA COMPARISONS: CT dated December 20, 2015 TECHNIQUE: 3-D axial [id number] MR angiography was performed of the head to include the [place] of [place]. Multiple 3-D maximum intensity projection reconstructions are also submitted for review. FINDINGS: RIGHT VERTEBRAL ARTERY: The distal right vertebral artery is unremarkable, without stenosis. LEFT VERTEBRAL ARTERY: The distal left vertebral artery is unremarkable, without stenosis. DOMINANCE: The vertebral arteries are codominant. DISTAL RIGHT CERVICAL INTERNAL CAROTID ARTERY: The distal right cervical internal carotid artery is unremarkable. DISTAL LEFT CERVICAL INTERNAL CAROTID ARTERY: The distal left cervical internal carotid artery is unremarkable. INTRACRANIAL CIRCULATION: There is no aneurysm, vascular malformation, occlusion, or stenosis of the visualized intracranial circulation. The anterior communicating artery complex is clear. There is a origin of the right posterior cerebral artery. The left posterior communicating artery is dominant over the P1 segment of the left posterior cerebral artery. With the majority of the posterior circulation coming from the anterior circulation, the vertebrobasilar system is diminutive which is felt to represent an anatomic variant. The appearance is noted to the previous examination. OTHER FINDINGS: None IMPRESSION: NO ANEURYSM, VASCULAR MALFORMATION, OCCLUSION, OR STENOSIS OF THE VISUALIZED INTRACRANIAL CIRCULATION.
--- NOTE | 2017-12-15 10:25 | RAD ---
HISTORY: Carotid Stenosis, Concern For CVA COMPARISONS: CT dated October 20, 2015 TECHNIQUE: The following sequences were obtained of the neck after localizing images: Stacked axial 2-D [id number] MR angiography of the neck; 3-D axial [id number] MR angiography of the carotid bifurcations. Additionally 3-D multiphase contrast-enhanced MR angiography of the neck was performed after the administration of a gadolinium-based intravenous contrast agent. . Multiple 3-D maximum intensity projection reconstructions are submitted for review. FINDINGS: AORTA: The aortic arch is not well visualized secondary to technique and motion artifact. There is no obvious ostial or proximal stenosis of the cephalic great vessels. RIGHT VERTEBRAL ARTERY: The right vertebral artery is patent and without stenosis. There is in plane flow saturation artifact of the horizontal portion of the right vertebral artery. LEFT VERTEBRAL ARTERY: The left vertebral artery is patent, without stenosis. There is in plane flow saturation artifact of the horizontal portion of the left vertebral artery. DOMINANCE: The vertebral arteries are codominant. RIGHT COMMON CAROTID ARTERY: The right common carotid artery is patent. RIGHT INTERNAL CAROTID ARTERY: There is no right internal carotid artery stenosis by NASCET criteria. LEFT COMMON CAROTID ARTERY: The left common carotid artery is patent. LEFT INTERNAL CAROTID ARTERY: There is short segment atheromatous plaque of the left carotid bifurcation resulting in approximately 40% stenosis of the left internal carotid artery by NASCET criteria. ADDITIONAL FINDINGS: The visualized intracranial circulation is unremarkable. IMPRESSION: APPROXIMATELY 40% SHORT SEGMENT LEFT INTERNAL CAROTID ARTERY STENOSIS BY NASCET CRITERIA. NO RIGHT INTERNAL CAROTID ARTERY STENOSIS BY NASCET CRITERIA. CPT II Codes: 3100F
[2017-12-15] MEDS ORDERED: Docusate CAP* 100 MG PO SCH (11:00)
--- NOTE | 2017-12-15 11:01 | PN ---
Subjective Date of Service: 12/15/17 Interval History: He had an uneventful night. He still feels that he is falling after walking or standing for a long period of time. He feels that he is going to fall backwards. he denied any vertigo, tinnitus, or lightheadedness. He also reported that his feet feel like lead, the left more than the right. He also reports mild weakness involving the left ankle. He denied any neck or low back pain. ROS: He denied any headaches, CP, SOB, or palpitations. I reviewed records from prior admission. The patient had an evaluation by Dr. Powers in the past and EMG/NCS in 2016 showed evidence of moderate axonal neuropathy. Objective Active Medications: Acetaminophen (Tylenol Tab*) 650 mg PO Q6H PRN PRN Reason: FEVER/PAIN Amlodipine Besylate (Norvasc Tab*) 5 mg PO QPM [facility] Aspirin (Aspirin Ec Tab*) 81 mg PO DAILY [facility] Last Admin: 12/15/17 08:51 Dose: 81 mg Atorvastatin Calcium (Lipitor*) [facility] [place] Protocol Last Admin: 12/15/17 08:52 Dose: 10 mg Docusate Sodium (Colace Cap*) 200 mg PO DAILY [facility] Enoxaparin Sodium (Lovenox(*)) 40 mg SUBCUT Q24H [facility] Last Admin: 12/14/17 22:36 Dose: 40 mg Finasteride (Proscar Tab*) 5 mg PO QAM [facility] Last Admin: 12/15/17 08:51 Dose: 5 mg Sodium Chloride (Ns 0.9% 1000 Ml*) 1,000 mls @ 75 mls/hr IV PER RATE [facility] Stop: 12/16/17 08:04 Last Admin: 12/14/17 22:32 Dose: 75 mls/hr Losartan Potassium (Cozaar Tab*) 50 mg PO QAM [facility] Last Admin: 12/15/17 08:50 Dose: 50 mg Metoprolol Tartrate (Lopressor Tab*) 12.5 mg PO BID [facility] Nitroglycerin (Nitroglycerin Tab 0.4 Mg*) 0.4 mg SL Q5M PRN PRN Reason: chest pain Omeprazole (Prilosec Cap*) 40 mg PO BID [facility] Last Admin: 12/15/17 08:53 Dose: 40 mg Ondansetron HCl (Zofran Inj*) 4 mg IV Q6H PRN PRN Reason: NAUSEA Ranolazine (Ranexa (Nf)) 1,000 mg PO BID [facility]; Protocol Last Admin: 12/15/17 09:17 Dose: 1,000 mg Terazosin HCl (Hytrin Cap*) 10 mg PO QPM [facility] Vital Signs - 12 hr Temp Pulse Resp BP Pulse Ox 12/15/17 07:25 98.3 F 51 16 119/63 96 12/15/17 03:08 98.5 F 52 20 125/60 97 12/14/17 23:31 57 20 127/62 98 12/14/17 23:29 98.7 F 60 20 123/62 99 Oxygen Devices in Use Now: None Neurology Exam: General: Well nourished man in no acute distress. He is resting comfortable sitting in a chair with his spouse. HEENT: Normocephelic/atraumatic, sclera anicteric, mucous membranes moist Neck: Supple Chest: Clear to auscultation bilaterally Cardiovascular: Regular rate and rhythm without murmurs, rubs, gallops Extremities: No clubbing, cyanosis, or edema Neurological Findings: Awake, Alert, Oriented to person, place, and time. Speech: fluent without dysarthric, repetition intact Cranial Nerve: PEERL, EOM intact, VFF, no nystagmus, face symmetric bilaterally , facial sensation intact, hearing intact to finger rub bilaterally, palate elevates symmetrically, tongue midline, SCM and Trapezius s/s. Motor: s/s throughout, proximal and distal extremities x4 tone/bulk normal except for 4/5 to left dorsiflexion and toe extension. Sensation: intact to LT/PP bilaterally upper and lower extremities except for decrease sensation to pin-prick and light touch to the medial and lateral leg, and plantar surface of the foot. Deep Tendon Reflex: 2+ throughout the upper extremity, 2+ at the right knee, 1+ at the left knee, 0 at the ankles bilaterally. Finger to nose, rapid alternating movements intact without tremor, no dysdiadochokinesia Gait: wide based, antalgic with mild retropulsion. Result Diagrams: 12/15/17 05:43 12/15/17 05:48 Additional Lab and Data: B12, TSH, and hemoglobin A1c are normal. Diagnostic Imaging: CT head without contrast 12/14: no acute intracranial lesion MRI brain without contrast 12/14: reviewed. No acute infarct. Small rounded SWI signal in left occipital and parietal lobe represent microhemorrhage. MRA head and neck: no vascular aneurysm, occlusion, or stenosis, and approximately 40% seg L ICA no right ICA stenosis Carotid ultrasound: 50-69% ICA stenosis on L Cervical spine CT- No fractures or C-Spine TTE: EF 55-60% Assessment/Plan Mr. 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 1. I suspect the patient has left lumbosacral radiculopathy involving the L4-5 and L5-S1 nerve roots causing problems with his gait. This is superimposed to his neuropathy. The supporting neurological findings for a radiculopathy include asymmetric sensory and motor findings in the lower extremities and reduced sensation in a dermatomal distribution on the left. 2. Axonal polyneuropathy 3. Hx of TIA and left ICA stenosis- his current presentation is not related to TIA or stroke since the symptoms persist and MRI is negative for acute infarction. 4. Microvascular intracranial disease- not acute since CT head shows no hemorrhage. He is at risk for cerebral amylodosis Recommendations: - Continue aspirin 81 mg daily and Crestor 5 mg daily. We decided not to increase the Crestor given his current complaints of gait imbalance and the risk of developing myalgia which may worsen his gait. - Ordered MRI L spine without contrast to evaluate for severity of disc disease - He will need PT evaluation and most likely outpatient rehabilitation for balance training - We will arrange a follow-up with Dr. Powers in 4 weeks. - We discussed fall precautions - I will continue to follow Time spent: 35 minutes
[2017-12-15] MEDS: NS 0.9% 1000 ML* 1,000 ML IV SCH (14:52)
[2017-12-15] MEDS ORDERED: amLODIPine TAB* 5 MG PO SCH (18:00)
[2017-12-15] MEDS ORDERED: Terazosin CAP* 5 MG PO SCH (18:00)
[2017-12-15 18:13] VITALS: BP 125/72
--- NOTE | 2017-12-16 07:50 | RAD ---
HISTORY: Suspect L4-5 and L5-S1 radiculopathy on left COMPARISONS: November 04, 2008 TECHNIQUE: The following sequences were obtained of the lumbar spine: Sagittal and axial T1- and T2-weighted images, coronal T2-weighted images, and sagittal STIR images. FINDINGS: SPINAL CORD, CONUS, AND CAUDA EQUINA: The visualized spinal cord, conus, and cauda equina are normal in caliber, position, and signal intensity. ALIGNMENT: There is a dextroscoliotic curvature of the spine. VERTEBRAL BODIES: There is multilevel marginal osteophyte formation. There are Modic type I reactive endplate changes at T11-T12 and T12-L1. JOINTS: There is facet osteoarthritis most pronounced along the lower lumbar spine. MUSCULATURE: There is both fatty infiltration. INTERVERTEBRAL DISCS: There is diffuse loss of intervertebral disc height and T2 signal throughout the spine. AXIAL IMAGES: T12-L1: There is no disc herniation, spinal stenosis, or neuroforaminal narrowing. L1-L2: There is no disc herniation, spinal stenosis, or neuroforaminal narrowing. L2-L3: There is no disc herniation, spinal stenosis, or neuroforaminal narrowing. L3-L4: There is bilateral facet hypertrophy. There is mild bilateral neuroforaminal narrowing. There is no significant central canal stenosis. L4-L5: There is bilateral facet hypertrophy with marginal osteophyte formation at the neural foramina bilaterally. There is mild right neuroforaminal narrowing. There is no significant central canal stenosis. L5-S1: There is a broad-based disc bulge. There is bilateral facet hypertrophy. There is severe right neuroforaminal narrowing. There is mild left neuroforaminal narrowing. There is no significant central canal stenosis. SOFT TISSUES: The visualized soft tissues of the abdomen are unremarkable. OTHER: None. IMPRESSION: 1. DEGENERATIVE DISC DISEASE AND OSTEOARTHRITIS. 2. THERE IS SEVERE RIGHT NEURAL FORAMINAL NARROWING AT L5-S1. THERE IS MILD MULTILEVEL NEUROFORAMINAL NARROWING ELSEWHERE, DESCRIBED ABOVE. 3. THERE IS NO SIGNIFICANT CENTRAL CANAL STENOSIS.
--- NOTE | 2017-12-17 04:04 | DS ---
CC: Dr. Lester; Dr. Avery Powers * DISCHARGE SUMMARY: DATE OF ADMISSION: 12/14/17 DATE OF DISCHARGE: 12/15/17 PRIMARY CARE PROVIDER: Dr. Lester. MY ATTENDING WHILE IN THE HOSPITAL: Dr. Maribel Rizo.* (DICTATED BY JOHANNY MCGARRY) OUTPATIENT NEUROLOGIST: Dr. Avery Powers. PRIMARY DISCHARGE DIAGNOSES: 1. Loss of balance. 2. Neuropathy. SECONDARY DISCHARGE DIAGNOSES: 1. Coronary artery disease, status post coronary artery bypass graft. 2. Benign prostatic hypertrophy. 3. Hyperlipidemia. 4. Hypertension. 5. Mild dementia. 6. History of aortic regurgitation, status post aortic valve replacement. 7. Squamous cell carcinoma. 8. History of cholecystectomy. STUDIES DONE WHILE IN THE HOSPITAL: Chest x-ray from 12/14/17 read as no evidence of acute disease. Cervical spine CT from 12/14/17 read as no fracture of cervical spine. Brain CT from 12/14/17 read as no intracranial mass or hemorrhage. Brain MRI from 12/14/17 read as no acute infarct or hemorrhage, small rounded SWI signal on the left occipital and parietal lobe, likely representing chronic microhemorrhages, minimal chronic microvascular ischemic changes, bilateral mastoid air cell effusions, right greater than left. Transthoracic echocardiogram from 12/14/17 read as mild concentric left ventricular hypertrophy, estimated ejection fraction 55% to 60%, abnormal left ventricular diastolic function observed consistent with impaired relaxation, left atrium is moderate to severely dilated, right atrium is mild to moderately dilated. Both sides are negative. Bioprosthetic aortic valve appears to be functioning normally. There is mild mitral regurgitation. There is mild tricuspid regurgitation. The tricuspid regurgitant jet is eccentric. There is evidence of mild pulmonary hypertension. There is mild to moderate pulmonic regurgitation. Compared to partial OTONIEL report of 10/13/15, his aortic valve with moderate to severe aortic has been replaced with bioprosthetic valve with normal function and MR is increased is mild to moderate now. LV function is similar. TR is increased from mild then to moderate now. Carotid Doppler ultrasound from 12/14/17 read as no hemodynamically significant stenosis in the right internal carotid artery by flow velocity measurements. This corresponds to luminal diameter less than 50% stenosis by NASCET criteria. Elevated peak systolic velocity in the left internal carotid artery consistent with left internal carotid artery stenosis and 50% to 69% by NASCET criteria. His head MRA from 12/14/17 read as no aneurysm, malformation, occlusion, or stenosis, but visualized intracranial circulation. Neck MRA from 12/14/17 read as approximately 40% short segment left internal carotid artery stenosis by NASCET criteria. No right internal carotid artery stenosis by NASCET criteria. Lumbar spine MRI from 12/15/17 read as degenerative disk disease and osteoarthritis. There is severe right neural foraminal narrowing at L5-S1. There is mild multilevel neural foraminal narrowing elsewhere as described above. There is no significant central canal stenosis. MEDICATIONS AT DISCHARGE: 1. Nitroglycerin 0.4 mg sublingually q.5 minutes as needed for angina. 2. Terazosin 10 mg p.o. q. p.m. 3. Rosuvastatin 5 mg p.o. q. a.m. 4. Ranolazine 1000 mg p.o. b.i.d. 5. Omeprazole 40 mg p.o. b.i.d. 6. Nystatin 1 application topical b.i.d. 7. Ocuvite 1 cap p.o. q.a.m. 8. Metoprolol tartrate 12.5 mg p.o. b.i.d. 9. Lutein 20 mg p.o. q. a.m. 10. Losartan 50 mg p.o. q. a.m. 11. Finasteride 5 mg p.o. q. a.m. 12. Aspirin 81 mg p.o. q. a.m. 13. Amlodipine 5 mg p.o. q. p.m. 14. Vitamin D3 at 1000 units p.o. daily. 15. Tylenol 650 mg p.o. q.6 hours as needed. 16. Docusate 200 mg p.o. daily. HOSPITAL COURSE: This is a brief summary of the patient's presentation. For more details, please see the history and physical from JOHANNY Mcgarry, on . In brief, the patient is an 82-year-old male with past medical history significant for the above as well as concern for several TIAs and strokes within the past 2 years who presented to the emergency department with rather sudden onset of loss of balance, which has been getting worse over the past 6 months, but then abruptly became worse at approximately 12:00 on the day of his presentation. The patient described the feeling as like he was about to fall. The patient noticed that it was worse with overexertion. The patient has been on aspirin regularly. The patient was diagnosed with stroke with similar symptoms in 2016. The patient has had issues with his memory and has been diagnosed with moderate dementia. The patient was referred previously to a vascular surgeon who did not recommend surgery for his known carotid artery stenosis, which was previously read at 75%. The patient was previously on Plavix until 2018 for his carotid artery stenosis. The patient has not had any issues with angina, except for 1 episode the week before his presentation, where he had a brief episode of angina, which resolved with nitroglycerin. The patient also had some concern for double vision, which had never occurred before and it was difficult for him to read and had resolved by the time he arrived at the emergency department and only it was present when he was attempting to read. The patient was admitted to the hospital, had studies as above for stroke, which showed a decrease in his carotid artery stenosis with unremarkable transesophageal echocardiogram. A brain MRI with chronic microvascular hemorrhage, which was not shown on CT scan and would not believe to be concerning for causing his acute symptoms. The patient was seen in consultation by Dr. Noe Grissom who believes his presentation may be consistent with his underlying neuropathy with possible lumbar spinal radiculopathy. Lumbar spine MRI was obtained as above, which did show severe foraminal narrowing at L5-S1. The patient's balance improved significantly while he is in the hospital; however, he did still feel off balance and the patient was seen in consultation by Physical Therapy who recommended use of a walker and observation while ambulating as well as ongoing vestibular PT, which the patient had had previously. The patient was stable and amenable for discharge on 12/16/17. Due to the patient's microvascular hemorrhages, he was not started on dual-antiplatelet therapy, even though there is a possibility he had a TIA. The patient would be continued on aspirin. His rosuvastatin was not increased. PHYSICAL EXAMINATION ON THE DAY OF DISCHARGE: General: The patient is an 82- year- old male, who appears stated age and is sitting comfortably in bed, in no acute distress. Vital Signs: At the time of evaluation, temperature 98.0, pulse rate 65, respiratory rate 18, oxygen saturation 98% on room air, blood pressure 125/72. HEENT: Head, normocephalic, atraumatic. Sclera anicteric. No conjunctival injection. Nasal mucosa moist. Oral mucosa moist. No pharyngeal erythema, discharge, or exudate. Neck: Supple, nontender. No lymphadenopathy. No carotid bruits auscultated. No JVD. Cardiac: Regular rhythm. Grade 2+ systolic ejection murmur heard best throughout the sternal border. No other clicks, murmurs, gallops, or rubs. Pulses are 2+ bilaterally on dorsalis pedis, posterior tibialis, and radial areas. Respiratory: Clear to auscultation bilaterally. No wheezes, rales, or rhonchi. Good air exchange bilaterally. Abdomen: Soft, nontender, nondistended. Bowel sounds are present and normoactive in all 4 quadrants. No hepatosplenomegaly. No abdominal bruits auscultated. No JVD. No hepatojugular reflux. Genitourinary : No suprapubic or CVA tenderness. Skin: Clean, dry and intact. Senile purpura present. Neuro: Cranial nerves II through XII intact. No deficits in bilateral upper and lower extremities distally and proximally. Sensation symmetrical and intact to light touch throughout. Reflex is 2+ in bilateral biceps and patellar areas, absent at the ankles bilaterally, downgoing. Gait is somewhat unsteady, but corrects with using a walker. Negative Romberg. Finger- to-nose and rapid alternating movements are performed without difficulty. LABORATORY DATA ON DAY OF DISCHARGE: White blood cell count 4.5, hemoglobin 11.5, platelet count 124. Sodium 137, potassium 3.5, chloride 108, carbon dioxide 24, anion gap 5, BUN 16, creatinine 0.85, glucose 91, calcium 8.4, magnesium 1.9. Other laboratory data of note from hospitalization, LDL cholesterol 82, vitamin B12 greater than 1450, troponin I 0.00, hemoglobin A1c 5.3. DISCHARGE PLAN: The patient will be discharged to home. The patient will follow up with Physical Therapy within 1 week to continue balance training as he did previously. The patient should follow up with Dr. Avery Powers of Neurology within 1 month. The patient at that time should have consideration for repeat nerve conduction studies as well as monitoring of his balance, general neurological state as well as possible continue workup for secondary causes of neuropathy. Consideration should be discussed for surgical fixation of the patient's neural foraminal stenosis as this is believed to be causing his worsening of his balance. The patient should discuss with his primary care provider, initiating medications, particularly Namenda for his cognitive impairment as he has had difficulty with memory and has issues with borderline bradycardia, though he is asymptomatic. The patient will not have his rosuvastatin increased due to concern for myalgias and generally good LDL cholesterol. The patient should return to the hospital for alarming signs such as severely increased difficulty with balance, chest pain, shortness of breath, passing out, palpitations, or other alarming symptoms. The patient should have a heart-healthy diet without caffeine, engage in activity as tolerated. TIME SPENT: Approximately 60 minutes were spent on this patient's discharge, 30 of which was spent [id number] with the patient obtaining the history and physical and discussing treatment plan. JOHANNY MCGARRY [id number]/[facility] #: [id number] FERNANDO
== END 2017-12-15 18:27 | disposition home or self-care (01) ==
LOC: ED 16:41 → MEDTELE 19:06
PROVIDERS: ADMIT Internal Medicine; ATTEND Internal Medicine
DX: R26.81 Unsteadiness on feet (principal); R42 Dizziness and giddiness; G62.9 Polyneuropathy, unspecified; I25.10 Atherosclerotic heart disease of native coronary artery without angina pectoris; Z95.1 Presence of aortocoronary bypass graft; N40.0 Benign prostatic hyperplasia without lower urinary tract symptoms; E78.5 Hyperlipidemia, unspecified; I10 Essential (primary) hypertension; F03.90 Unspecified dementia, unspecified severity, without behavioral disturbance, psychotic disturbance, mood disturbance, and anxiety; Z95.4 Presence of other heart-valve replacement; C80.1 Malignant (primary) neoplasm, unspecified; Z86.73 Personal history of transient ischemic attack (TIA), and cerebral infarction without residual deficits; Z79.82 Long term (current) use of aspirin; M51.36 Other intervertebral disc degeneration, lumbar region; M19.90 Unspecified osteoarthritis, unspecified site
CPT/HCPCS: 36415; 70450; 70544; 70549; 70551; 71045; 72125; 72148; 80048; 80053; 80061; 80320; 82607; 83036; 83605; 83735; 84484; 85025; 85610; 85730; 93005; 93306; 93880; 99283; A9270-GY; A9577; G0378; G0480; G8978-GP-CI; G8979-GP-CI; J1650

== ENCOUNTER 2019-01-18 03:19 | Emergency (ER) | payer MEDICARE, BC ==
--- OUTSIDE RECORDS SUMMARY | 2019-01-18 03:31 | XMS REPORT | Summary of Care ---
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 RECORDS CLERK [facility] [place] [address] Encounter Details Date Type Department Care Team Description 12/01/2018 Office Visit [facility] - Yves Chapa, Pain in joint Maria Teresa CURTIS involving left pelvic [address] 1 [facility] region and thigh [address] [place] [address] (Primary Dx) [place] [address] [phone] Allergies No Known Allergiesdocumented as of this encounter (statuses as of 12/22/2018) Medications Medication Sig Dispensed Refills Start Date End Date Status Cholecalciferol Take by mouth 0 Active (VITAMIN D3) 1000 UNITS DAILY. Oral Tab Lutein 20 MG Oral Tab Take 1 Tab by 0 Active mouth DAILY. aspirin (ECOTRIN) 81 MG Take 81 mg by 0 Active Oral Tab EC mouth DAILY. ranolazine (RANEXA) Take 1,000 mg 0 Active 1000 MG Oral TABLET SR by mouth TWICE 12 HR DAILY. amLodipine (NORVASC) 5 Take 1 Tab by 30 Tab 11 09/23/2017 Active MG Oral TabIndications: mouth EVERY Stable angina (HCC) BEDTIME. donepezil (ARICEPT) 5 Take 1 Tab by 90 Tab 3 01/02/2018 Active MG Oral Tab mouth DAILY. losartan (COZAAR) 50 MG TAKE 1 TAB BY 90 Tab 1 01/26/2018 Active Oral Tab MOUTH DAILY. ticagrelor (BRILINTA) Take 1 Tab by 60 Tab 11 02/10/2018 Active 90 MG Oral Tab mouth TWICE DAILY. Saw [place] 1000 MG Take by mouth 0 Active Oral Cap DAILY. Cyanocobalamin (VITAMIN Take by mouth 0 Active B 12 PO) DAILY. Pyridoxine HCl (B-6 PO) Take by mouth [address] 1 Tab 25 Tab 5 02/16/2018 Active (NITROSTAT) 0.4 MG under tongue Sublingual SL Tab EVERY FIVE MINUTES NEEDED for chest pain. Tamsulosin HCl (FLOMAX) Take 1 Cap by 90 Cap 5 02/16/2018 Active 0.4 MG Oral Cap mouth EVERY BEDTIME. finasteride (PROSCAR) 5 TAKE 1 TABLET 90 Tab 0 07/11/2018 Active MG Oral Tab BY MOUTH EVERY DAY ranitidine (RANITIDINE Take 150 mg by 0 Active 150 MAX STRENGTH) 150 mouth TWICE MG Oral Tab DAILY. clotrimazole-betamethas Apply to 45 g 5 10/18/2018 10/18/2019 Active one (LOTRISONE) 1-0.05 foreskin and % Apply externally tip of penis Cream twice daily Rosuvastatin Calcium 5 Take 1 Tab by 90 Tab 3 11/06/2018 Active MG Oral Tab mouth DAILY. Hospital, Clinic, or Other Ordered Dose Route Frequency Start Date End Date Status Facility Administered Medication methylPREDNISolone acetate 80 mg IX NOW 12/01/2018 12/01/2018 Ended (DEPO-MEDROL) injection 80 MG/ML documented as of this encounter (statuses as of 12/22/2018) Active Problems Problem Noted Date Claudication 10/25/2018 Pseudophakia, both eyes 01/05/2018 Disorder of refraction and accommodation 01/05/2018 S/P AVR 11/22/2016 Overview: 11/22/2016. Redo median sternotomy, aortic valve replacement with [facility] [place] #[address] Palacios Squamous cell carcinoma of left hand 11/12/2016 Overview: proximal dorsal thumb History of squamous cell carcinoma in situ 10/12/2016 Multiple benign nevi 05/18/2016 Stable angina 03/24/2016 Stucco keratoses 01/06/2016 Dermatofibroma 12/02/2015 Overview: left upper back Actinic keratoses 12/02/2015 Essential hypertension 02/03/2015 PVD (peripheral vascular disease) 02/03/2015 Bilateral groin pain 11/20/2014 Overview: 11/25/14: ABIs ABIS and PVRS pre exercise indicate a normal resting ankle brachial index study : PVRS pre exercise of the bilaeral thighs, calves ,ankles, metatarsals and 1st toe digits are normal with triphasic bilateral DP/PTs. Pre exercise right ANDREA: 1.2, Left 1.2 The patient was able to walk on the treadmill for approximately 5 minutes at 16.6 mph with a 12% incline, the patient has some chest pressures but denied leg pain. PVRS and ABIs post exercise shows no change in the PVRs or the dopplers indicating a normal exercise exam. Post exercise right ANDREA 1.1, left 1.1 There is no previous exam available for comparison. Mixed hyperlipidemia 10/18/2014 GERD (gastroesophageal reflux disease) 10/18/2014 CAD (coronary artery disease) 10/02/2014 Overview: S/P CABG x 1 10/02/2014 Overview: 1990s Carotid artery stenosis 10/02/2014 Overview: 07/05/15: Carotid Duplex ([facility], [place], [place]) Conclusion: 1. No hemodynamically significant stenosis of the right internal carotid artery. 2. The left internal carotid artery has a possible 50-70% stenosis. The proximal right common carotid artery has elevated velocities, suggesting a possible proximal stenosis but this is not visualized on this ultrasound. 3. Vertebral artery flow was antegrade bilaterally 10/22/13: Carotid Duplex ([facility]) Plaque posterior surface EUNICE with mild stenosis, 15-39% Plaque proximal LICA with moderate stenosis 40-59%. Mild stenosis LECA Antegrade flow both vertebral arteries. Hypogonadism male 11/11/2011 Benign prostatic hyperplasia 09/10/2008 Overview: Dr Cortes [facility] documented as of this encounter (statuses as of 12/22/2018) Resolved Problems Problem Noted Date Resolved Date Scar condition and fibrosis of skin 11/16/2016 10/20/2017 Aortic valve regurgitation 10/27/2016 10/20/2017 Skin tags, multiple acquired 05/18/2016 10/20/2017 Boyd angioma 05/18/2016 10/20/2017 Freckles 05/18/2016 10/20/2017 Post-inflammatory hyperpigmentation 05/18/2016 10/18/2018 Overview: forearms Seborrheic keratosis 01/06/2016 10/20/2017 Neoplasm of uncertain behavior of skin 12/02/2015 10/20/2017 Dry skin 10/07/2015 10/20/2017 AR (aortic regurgitation) 02/03/2015 10/20/2017 Overview: 01/27/16: Echocardiogram Aortic Valve Aortic valve appears tricuspid with mildly thickened and calcified but flexible leaflets. There is no aortic stenosis. There is moderate to severe aortic regurgitation. (Severe based on color Doppler jet in image #33, however other views and pressure half time is more suggestive of a moderate degree of regurgitation). FINAL IMPRESSION: Normal LV size. Normal LV systolic function with no regional wall motion abnormalities and estimated LVEF 60-65% Moderate LA enlargement. Normal RA and RV size and function. Moderate to severe Aortic regurgitation (see comments below). Estimated pulmonary artery systolic pressure measured 25 mmHg No pericardial effusion. Compared to the prior OTONIEL echocardiogram of 10/01/2015, there is no significant change in aortic regurgitation severity. LVEF appears higher on this study. Pulmonic regurgitation appears mild, but may be underestimated on this study. I have personally seen and reviewed the study with the passenger tire inspector and agree with the above documentation. 10/29/15: Right and Left Heart Catheterization FINDINGS: PRESSURES: 1. Aortic pressure was 156/68 with a mean of 104. 2. Left ventricular pressure was 168/7 to 10, again left ventricular end-diastolic pressure was somewhere between 7 to 10. 3. Right atrial pressure, mean was 4, A wave was 9, and V wave was 7. 4. Right ventricular pressure was 31/-4. 5. Pulmonary artery pressure was 31/4 with a mean of 14. 6. Pulmonary capillary wedge pressure, mean was 5, A wave was 9, and V wave was 8. 7. Right atrial and pulmonary artery saturations were 80%. 8. Aortic saturation was 97%. 9. The difference between the arterial and venous saturation was 17%. 10. Cardiac output was 7.1. 11. Cardiac index was 3.4. 12. Systemic vascular resistance was 12 wood units. 13. Pulmonary vascular resistance was 1.3 wood units. Aortic root injection was done with 30 mL of contrast and revealed severe aortic regurgitation, at least 3+ aortic regurgitation with mildly calcific aortic valve apparatus. CONCLUSION: 1. Severe aortic regurgitation that was well compensated with normal right-sided pressures and normal cardiac output and cardiac index with no evidence of left ventricular dilatation or drop in the ejection fraction. 2. Two-vessel coronary artery disease with a patent left internal mammary artery to the left anterior descending with no significant change in the anatomy since last cardiac catheterization in 2014. RECOMMENDATION: The recommendation is to continue medical therapy at this time and only if there is any evidence of decompensation as a result of the aortic regurgitation, the patient should be considered for aortic valve replacement. 10/01/15: OTONIEL Aortic Valve Aortic valve is trileaflet with normal mobility. There is no aortic stenosis. Aortic regurgitation quantification was based on the following parameters: Jet width occupies 50-75% of the LVOT width in most views, while it clearly occupies >65% of LVOT width in some long axis images (#40, #113, #115). Vena contracta : 0.54-0.66cm Estimated EROA by PISA= 0.21cm (based on a PISA radius of 0.64cm) RV= 37ml Pressure half time is 299-320ms. Brief flow reversal in the descending aorta during early diastole. PISA measurements and pressure half time values are in moderate range, while the regurgitant jet width and vena contracta approach near severe. Overall there is moderate to severe aortic regurgitation. (Image # [id number] were not considered for aortic regurgitation quantification due to suboptimal Nyquist scale limit settings) FINAL IMPRESSION: Normal LV size and low normal LV systolic function with estimated LVEF 50-55%. Mild to moderate LA enlargement. Normal right heart size and preserved RV contractility. Moderate to severe aortic regurgitation (see text) Mild Mitral and tricuspid regurgitation Moderate pulmonic regurgitation No pericardial effusion. OK (pulmonary regurgitation) 02/03/2015 10/18/2018 Overview: 01/27/16: Echocardiogram Pulmonic Valve Pulmonic valve leaflets are flexible There is mild pulmonic regurgitation (may be underestimated). Abnormal nuclear stress test 10/24/2014 10/20/2017 Precordial pain 10/24/2014 10/20/2017 Sun-damaged skin 10/09/2014 10/20/2017 Dyslipidemia 10/02/2014 10/20/2017 Chest pain 10/02/2014 10/18/2014 Urgency of urination 09/10/2008 11/11/2011 Incomplete bladder emptying 09/10/2008 11/11/2011 documented as of this encounter (statuses as of 12/22/2018) Immunizations Name Administration Dates Next Due Depo Medrol (80mg) 11/27/2014 Influenza Vaccine High Dose 01/09/2018, 02/08/2017, 02/26/2016, 01/29/2016, 02/12/2015 Influenza Vaccine Whole 02/19/2018 Lidocaine 1% (Not Billed) 11/27/2014 Pneumococcal Conjugate(13 Valent) 02/08/2017 dT Vaccine 01/09/2018 documented as of this encounter Social History Tobacco Use Types Packs/Day Years Used Date Never Smoker Smokeless Tobacco: Former User Alcohol Use Drinks/Week oz/Week Comments Yes 0 Standard drinks or equivalent 3.0 OCCASIONAL 3 Glasses of wine Sex Assigned at Date Recorded Not on file Job Start Date Occupation Industry Not on file Not on file Not on file Travel History Travel Start Travel End No recent travel history available. documented as of this encounter Last Filed Vital Signs Vital Sign Reading Time Taken Comments Blood Pressure - - Pulse - - Temperature - - Respiratory Rate 16 12/01/2018 10:20 AM EDT Oxygen Saturation - - Inhaled Oxygen Concentration - - Weight 80.7 kg (178 lb) 12/01/2018 10:20 AM EDT Height 180.3 cm (5' 11") 12/01/2018 10:20 AM EDT Body Mass Index 24.83 12/01/2018 10:20 AM EDT documented in this encounter Progress Notes Yves Chapa MD - 12/01/2018 10:15 AM EDT PATIENT: Jayy Kee : 1935 DATE OF SERVICE: 12/01/2018 REFERRING PROVIDER: Sohail Vegas PCP: Daron Lester Chief Complaint Patient presents with Hip Pain b/l HPI: Jayy Kee is a 83-y.o. male with complaint of left hip pain. The pain is 0/10 at rest, and 5/10 at its worst. The pain has been present for several months . It is located lateral thigh. It is worse with weight bearing, stairs and activity. Jayy Kee has tried tylenol, NSAID's and activitymodification , these are no longer helping. Physical therapy and/or home exercise has just been started. The pain is interfering with daily activities and affecting quality of life. Pain Assessment Location of pain: left hip Symptoms: Throbbing;Aching;Buckling Timing of Pain: Intermittent Relieving Factors: Rest;Other Aggravating Factors: Walking(stairs) Pain Severity at Rest: 0 Pain Score during activity: 5 Result of Injury: No No Known Allergies Current Outpatient Medications Medication Sig amLodipine (NORVASC) 5 MG Oral Tab Take 1 Tab by mouth EVERY BEDTIME. aspirin (ECOTRIN) 81 MG Oral Tab EC Take 81 mg by mouth DAILY. Cholecalciferol (VITAMIN D3) 1000 UNITS Oral Tab Take by mouth DAILY. clotrimazole-betamethasone (LOTRISONE) 1-0.05 % Apply externally Cream Apply to foreskin and tip of penis twice daily Cyanocobalamin (VITAMIN B 12 PO) Take by mouth DAILY. donepezil (ARICEPT) 5 MG Oral Tab Take 1 Tab by mouth DAILY. finasteride (PROSCAR) 5 MG Oral Tab TAKE 1 TABLET BY MOUTH EVERY DAY losartan (COZAAR) 50 MG Oral Tab TAKE 1 TAB BY MOUTH DAILY. Lutein 20 MG Oral Tab Take 1 Tab by mouth DAILY. nitroglycerin (NITROSTAT) 0.4 MG Sublingual SL Tab Place 1 Tab under tongue EVERY FIVE MINUTES NEEDED for chest pain. Pyridoxine HCl (B-6 PO) Take by mouth DAILY. ranitidine (RANITIDINE 150 MAX STRENGTH) 150 MG Oral Tab Take 150 mg by mouth TWICE DAILY. ranolazine (RANEXA) 1000 MG Oral TABLET SR 12 HR Take 1,000 mg by mouth TWICE DAILY. Rosuvastatin Calcium 5 MG Oral Tab Take 1 Tab by mouth DAILY. Saw [place] 1000 MG Oral Cap Take by mouth DAILY. Tamsulosin HCl (FLOMAX) 0.4 MG Oral Cap Take 1 Cap by mouth EVERY BEDTIME. ticagrelor (BRILINTA) 90 MG Oral Tab Take 1 Tab by mouth TWICE DAILY. Current Facility-Administered Medications Medication methylPREDNISolone acetate (DEPO-MEDROL) injection 80 MG/ML Past Medical History: Diagnosis Date Actinic keratosis of multiple sites of head and neck Basal cell carcinoma 12/23/14 right mid back BPH (benign prostatic hyperplasia) CVA (cerebral vascular accident) (HCC) November 2015; residual balance problems Low testosterone Skin cancer Squamous cell carcinoma Right forearm 2013 Squamous cell carcinoma 09/06/2012 Right Pre auricular-in situ Urinary frequency Past Surgical History: Procedure Laterality Date ANGIOPLASTY STENT CORONARY VIA GROIN N/A 02/10/2018 Procedure: ANGIOPLASTY STENT CORONARY; Surgeon: Timmy Oliver MD; Location : [facility]; Laterality: N/A; CORONARY ANGIOGRAM RIGHT FEM ANGIO KIRKLAND ANGIO PRE DIL KIRKLAND VALE X 1 TO KIRKLAND RIGHT FEM ANGIO ANGIOSEAL CATHETERIZATION HEART LEFT N/A 10/24/2014 Procedure: CATHETERIZATION HEART LEFT; Surgeon: Juan Lyn MD; Location: [facility] CATHETERIZATION HEART RIGHT AND LEFT N/A 10/29/2015 Procedure: CATHETERIZATION HEART RIGHT AND LEFT; Surgeon: Juan Lyn MD; Location: [facility] ECHO, TRANS ESOPHOGEAL N/A 10/01/2015 Procedure: ECHO, TRANS ESOPHOGEAL; Surgeon: Timmy Oliver MD; Location: [facility] OK CABG, ARTERIAL, SINGLE 1997 OK R& L HRT CATH W/INJEC HRT ART/GRFT& L VENT I N/A 11/03/2016 Procedure: CATHETERIZATION HEART RIGHT AND LEFT; Surgeon: Juan Lyn MD; Location: [facility] A comprehensive review of systems was done and negative except for that noted in the HPI Social History Socioeconomic History Marital status: Spouse name: Not on file Number of children: Not on file Years of education: Not on file Highest education level: Not on file Occupational History Not on file Social Needs Financial resource strain: Not on file Food insecurity: Worry: Not on file Inability: Not on file Transportation needs: Medical: Not on file Non-medical: Not on file Tobacco Use Smoking status: Never Smoker Smokeless tobacco: Former User Substance and Sexual Activity Alcohol use: Yes Alcohol/week: 3.0 standard drinks Types: 3 Glasses of wine per week Comment: OCCASIONAL Drug use: No Sexual activity: Yes Partners: Female Lifestyle Physical activity: Days per week: Not on file Minutes per session: Not on file Stress: Not on file Relationships Social connections: Talks on phone: Not on file Gets together: Not on file Attends faith service: Not on file Active member of club or organization: Not on file Attends meetings of clubs or organizations: Not on file Relationship status: Not on file Intimate partner violence: Fear of current or ex partner: Not on file Emotionally abused: Not on file Physically abused: Not on file Forced sexual activity: Not on file Other Topics Concern Back Care Not Asked Bike Helmet Not Asked Blood Transfusions Not Asked Caffeine Concern Not Asked Exercise Yes Comment: no formal exercise [place] Hobby Hazards Not Asked International Travel Not Asked Service Not Asked Occupational Exposure Not Asked Seat Belt Not Asked Self-Exams Not Asked Sleep Concern Not Asked Special Diet No Stress Concern Not Asked Weight Concern Not Asked Social History Narrative September 2015: [place] in [place] Lives in [facility] with Grew up in [place] 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 Awake, alert, oriented Bilateral hips: Pos peritroch tenderness. No pain with internal rotation. Non antalgic gait. Neg trendelenburg. Limb lengths grossly equal. Neg stinchfield. ROM 0-90 flexion, 15 internal rotation, 25 external rotation, 35 abduction, 10adduction, 5/5 DF, 5/5PF, sensate saphenous, sural, deep peroneal, superficial peronea, and plantar nerves + 2 dorsalis pedis and + 2 posterior tibial pulses. No noted lymphedema No pain with range of motion of lumbar spine. Straight leg raise neg . Bilateral knees are free of crepitus. Full range of motion. Patella tracks normally. Ligaments stable. Pain free with range of motion. No swelling. No joint line tenderness..neutral alignement. RADIOLOGIC STUDIES: I Have personally reviewed the Imaging, the report , and reviewed with the patinet, and it shows bilateral hips with mild joint space narrowing Lab Results Component Value Date GLYCO 5.2 11/05/2016 ASSESSMENT: ICD-9-CM ICD-10-CM 1. Pain in joint involving left pelvic region and thigh 719.45 M25.552 INJECTION , JOINT SHOUDLER HIPKNEE OR BURSA PLAN: Troch bursitis PROCEDURE: The patient was advised of the material risks and benefits of a steroid injection and verbal informed consent was obtained. The skin was prepped with an alcohol sponge and steroid injection was performed in the left troch bursa using 1% plain Lidocaine and 80 mg of depomedrol. This was well tolerated. Author: Yves Chapa MD 12/01/2018 10:25 Portions of this note were made with voice recognition software documented in this encounter Plan of Treatment Date Type Specialty Care Team Description 01/12/2019 Office Visit Orthopedics Yves Chapa MD [address] [address] 02/07/2019 Office Visit Cardiology Timmy Oliver MD [address] [address] Name Type Priority Associated Diagnoses Order Schedule INJECTION, JOINT Procedures Routine Pain in joint involving Ordered: 2018 SHOUDLER HIP KNEE OR left pelvic region and BURSA thigh Health Maintenance Due Date Last Done Comments HIV SCREENING 1950 ZOSTER IMMUNIZATION SERIES 09/16/1987 (1 of 2) MEDICARE ANNUAL WELLNESS 02/08/2018 02/08/2017, 11/06/2015, VISIT 11/06/2015, Additional history exists PNEUMOCOCCAL 65+YRS (2 of 2 02/08/2018 02/08/2017 - PPSV23) INFLUENZA VACCINE (#1) 2018 02/19/2018, 02/17/2018, 01/09/2018, Additional history exists DEPRESSION SCREENING 10/19/2019 10/18/2018 FALL RISK ASSESSMENT 11/01/2019 10/31/2018, 10/31/2018 HPV IMMUNIZATION SERIES Aged Out No longer eligible based on patient's age to complete this topic MENINGOCOCCAL VACCINE IMM Aged Out No longer eligible based on patient's age to complete this topic documented as of this encounter Goals Goal Patient Goal Associated Recent Patient-Stated? Author Type Problems Progress Blood Pressure Blood Pressure 130/70 No [place], < 150/90 (11/21/2018 Daron Jones, 11:37 AM EDT) Note: This is an individualized treatment (blood pressure) goal for Jayy Kee: Displayed above (on the left) is your goal for blood pressure control. Your most recent blood pressure is also shown above, on the right. You should try to achieve blood pressures that are lower than your goal listed above (on the left). Take all prescribed medications as Self-management Daron Vargas MD directed Note: This is an individualized self-management goal for Jayy Kee: Please take all prescribed medications as directed. 1. Do not skip doses. If you cannot afford your medications, talk with your doctor. 2. Use a pill reminder system such as a pill box if needed. Your pharmacist can help you with this. 3. Contact your Pharmacy 5 days before your medication runs out. If you cannot take your medications for any reasons, talk with your doctor. 4. Please bring all of your medication bottles and inhalers (or a list of all your medications/inhalers) with you to every visit. Potential barriers to meeting all of your care plan goals will continue to be addressed on an ongoing basis. documented as of this encounter Implants Implanted Type Area Load Blocker Device Shelf Model / Identifier Expiration Serial / Lot Date Trifecta Valve 23mm With [employer] (Gt) - [id number] N/A: Aortic [facility] 03/06/2020 [id number] / Implanted: Qty: 1 on 11/22/2016 by Nestor Palacios MD at [facility] [employer] [id number] / 2.25/20 Synergy (Stent - [id number] [place] [id number] / Implanted: Qty: 1 on 02/10/2018 by J Carlos Beavers MD at [facility] [employer] / [id number] documented as of this encounter Results Not on filedocumented in this encounter Visit Diagnoses Diagnosis Pain in joint involving left pelvic region and thigh - Primary documented in this encounter Administered Medications Medication Order MAR Action Action Date Dose Rate Site methylPREDNISolone acetate Given 12/01/2018 10:38 AM 80 mg Hip - Left (DEPO-MEDROL) injection 80 MG/ML EDT 80 mg, Intra-articular, NOW, 1 dose, Tue12/01/18 at 1030 documented in this encounter Insurance Payer Benefit Plan / Subscriber ID Effective Dates Phone Address Type Group MEDICARE MEDICARE PART A & xxxxxxxxxxx 2002-Present Medicare B [employer] xxxxxxxxxxxx 2013-Present [employer] Guarantor Name Account Type Relation to Date of Phone Billing Address Patient Jayy Kee Personal/Family 1935 [address] (Home) [place], [place] [phone] [id number] (Work) documented as of this encounter Advance Directives Code Status Date Activated Date Inactivated Comments Full Code 03/24/2016 2:27 PM 03/26/2016 8:14 PM Does patient have decision making capacity? yes Order discussed with: Patient I discussed all options and patient/surrogate requested and agreed to: Full Code
[2019-01-18] MEDS ORDERED: Ketorolac INJ* 30 MG/ML 1 ML VIAL IM ONE (03:53)
--- NOTE | 2019-01-18 04:37 | ED ---
Back Pain - HPI Summary HPI Summary: Pt is an 83 y/o M presenting to the ED for a chief complaint of right shoulder and back pain. When he stood up from a reclining chair, he had right shoulder pain that began at 22:30 on 01/17/2019 that continued while walking on bed. Pt was unable to sleep. He later had back pain upon standing with no shoulder pain. The pt took 2 tablets of Tylenol without relief. His symptoms continued to worsen. Changing positions while attempting to sleep provided no relief. He denies abdominal pain, dysuria, nausea, vomiting, chest pain, or SOB. No incontinence is reported. Pt has associated diarrhea and has lower back pain on palpation. Pt denies pain, tingling, or numbness in BLE. The shoulder pain has resolved. - History of Current Complaint Chief Complaint: EDBackInjuryPain Stated Complaint: BACK PAIN PER PT Time Seen by Provider: 01/18/19 03:23 Hx Obtained From: Patient Onset/Duration: Sudden Onset, Lasting Hours Onset/Duration: Started Hours Ago, Atraumatic, Still Present Timing: Constant, Lasting Hours Back Pain Location: Is Discrete @ - Lower back Severity Initially: Severe Severity Currently: Moderate Pain Intensity: 8 Pain Scale Used: 0-10 Numeric Aggravating Symptom(s): Nothing Alleviating Symptom(s): Nothing - Changing position gave no relief. Associated Signs And Symptoms: Positive: Other - Negative dysuria, nausea, vomiting, CP, or SOB; positive diarrhea.. Negative: Numbness - legs, Tingling - legs, Abdominal Pain, Bladder Incontinence, Bowel Incontinence - Allergies/Home Medications Allergies/Adverse Reactions: Allergies Allergy/AdvReac Type Severity Reaction Status Date / Time No Known Allergies Allergy Verified 01/18/19 03:41 Home Medications: Home Medications Cyanocobalamin (Vitamin B-12) [B-12] 5,000 mcg PO DAILY 01/18/19 [History Confirmed 01/18/19] Donepezil TAB* [Aricept 5 MG TAB*] 5 mg PO DAILY 01/18/19 [History Confirmed ] Pyridoxine TAB* [Vitamin B6 TAB*] 200 mg PO DAILY 01/18/19 [History Confirmed ] Ranitidine TAB (NF) [Zantac TAB (NF)] 150 mg PO BID 01/18/19 [History Confirmed 01/18/19] Saw [place] Fruit [Saw Kensett] 450 mg PO DAILY 01/18/19 [History Confirmed ] Tamsulosin CAP* [Flomax CAP*] 0.4 mg PO DAILY 01/18/19 [History Confirmed ] Ticagrelor* [Brilinta 90 MG*] 90 mg PO BID 01/18/19 [History Confirmed 01/18/19] PMH/Surg Hx/FS Hx/Imm Hx Previously Healthy: Yes Endocrine/Hematology History: Denies: Hx Diabetes Cardiovascular History: Reports: Hx Angina, Hx Cardiomegaly, Hx Coronary Artery Disease, Hx Hypercholesterolemia, Hx Hypertension, Hx Valvular Heart Disease - aortic valve insufficiency, moderate to severe mitral regurgitation Denies: Hx Pacemaker/ICD GI History: Reports: Hx Gastroesophageal Reflux Disease, Other GI Disorders - constipation History: Reports: Hx Benign Prostatic Hyperplasia Denies: Hx Renal Disease Sensory History: Reports: Hx Contacts or Glasses, Hx Hearing Aid Opthamlomology History: Reports: Hx Contacts or Glasses Psychiatric History: Denies: Hx Panic Disorder - Cancer History Cancer Type, Location and Year: skin cancer (left zuniga); s/p biopsy - Surgical History Surgery Procedure, Year, and Place: GALLBLADDER. CATARACTS. OPEN HEART 1996. open heart with valve replacment 2016 Infectious Disease History: No Infectious Disease History: Denies: Traveled Outside the [place] in Last 30 Days - Family History Known Family History: Positive: Cardiac Disease - parents and grandparents, Other - stroke - Social History Alcohol Use: Daily Alcohol Amount: wine before dinner, a few times a week Substance Use Type: Reports: None Smoking Status (MU): Never Smoked Tobacco Review of Systems - ROS Summary Review of Systems Summary: Cyanocobalamin (Vitamin B-12) [B-12] 5,000 mcg PO DAILY 01/18/19 [History Confirmed 01/18/19] Donepezil TAB* [Aricept 5 MG TAB*] 5 mg PO DAILY 01/18/19 [History Confirmed ] Pyridoxine TAB* [Vitamin B6 TAB*] 200 mg PO DAILY 01/18/19 [History Confirmed ] Ranitidine TAB (NF) [Zantac TAB (NF)] 150 mg PO BID 01/18/19 [History Confirmed 01/18/19] Saw [place] Fruit [Saw Kensett] 450 mg PO DAILY 01/18/19 [History Confirmed ] Tamsulosin CAP* [Flomax CAP*] 0.4 mg PO DAILY 01/18/19 [History Confirmed ] Ticagrelor* [Brilinta 90 MG*] 90 mg PO BID 01/18/19 [History Confirmed 01/18/19] Negative: Chest Pain Negative: Shortness Of Breath Positive: Diarrhea. Negative: Abdominal Pain, Vomiting, Nausea Negative: dysuria, incontinence Positive: Myalgia - Low back pain and since resolved right shoulder pain Negative: Paresthesia - BLE, Numbness - BLE All Other Systems Reviewed And Are Negative: Yes Physical Exam - Summary Physical Exam Summary: General: Well-developed, Well-nourished male. No acute distress. HEENT: Normocephalic, Atraumatic. Eyes: Conjuctiva normal, PERRL. Ears: TMs within normal limits. Nares: (-) discharge, (-) erythema. Oropharynx: Clear, mucous membranes moist, (-) exudates. Neck: Soft, FROM, (-) lymphadenopathy, (-) thyromegaly, (-) JVD. Cardiovascular: Normal sinus rhythm, (-) murmur. Lungs: Clear to auscultation bilaterally (-) wheezes, (-) rales, (-) rhonchi. Abdomen: Soft, non-tender, non-distended, (-) organomegaly, normal bowel sounds. Back: (-) CVA tenderness. Tenderness at midline lumber and bilateral low back area. Extremities: No edema. Skin: Warm, dry, (-) rash. Neuro: Alert and oriented x3, no focal deficits. Psychiatric: Mood normal, affect normal. Triage Information Reviewed: Yes Vital Signs On Initial Exam: Initial Vitals Temp Pulse Resp BP Pulse Ox 98.7 F 62 20 145/75 98 01/18/19 03:20 01/18/19 03:20 01/18/19 03:20 01/18/19 03:20 01/18/19 03:20 Vital Signs Reviewed: Yes Diagnostics - Vital Signs Vital Signs Temp Pulse Resp BP Pulse Ox 01/18/19 04:08 61 138/73 96 01/18/19 04:00 62 95 01/18/19 03:39 69 129/107 98 01/18/19 03:37 60 99 01/18/19 03:20 98.7 F 62 20 145/75 98 - Laboratory Lab Statement: Any lab studies that have been ordered have been reviewed, and results considered in the medical decision making process. Back Pain Course/Dx - Course Course Of Treatment: Pt is an 83 y/o M presenting to the ED for a chief complaint of right shoulder and back pain. When he stood up from a reclining chair, he had right shoulder pain that began at 22:30 on 01/17/2019 that continued while walking on bed. Pt was unable to sleep. He later had back pain upon standing with no shoulder pain. The pt took 2 tablets of Tylenol without relief. His symptoms continued to worsen. Changing positions while attempting to sleep provided no relief. He denies abdominal pain, dysuria, nausea, vomiting , chest pain, or SOB. No incontinence is reported. Pt has associated diarrhea and has lower back pain on palpation. Pt denies pain, tingling, or numbness in BLE. The shoulder pain has resolved. Pt given Ketorolac 30 mg IM. Pt is discharged with a diagnosis of low back pain. Follow up with PCP in 3 days. - Diagnoses Provider Diagnoses: Low back pain Discharge ED - Sign-Out/Discharge Documenting (check all that apply): Patient Departure - Discharged Patient Received Moderate/Deep Sedation with Procedure: No - Discharge Plan Condition: Stable Disposition: HOME Patient Education Materials: Back Pain (ED) Referrals: Daron Lester MD [Primary Care Provider] - 3 Days Additional Instructions: REST AND TAKE TYLENOL FOR PAIN. APPLY ICE/HEAT TO AFFLICTED AREA. PLEASE RETURN TO ED FOR ANY NEW OR WORSENING SYMPTOMS. FOLLOW UP WITH YOUR PRIMARY CARE PHYSICIAN WITHIN THREE DAYS. - Billing Disposition and Condition Condition: STABLE Disposition: Home - Attestation Statements Document Initiated by Scribe: Yes Documenting Scribe: Danilo Woodruff Provider For Whom Marnie is Documenting (Include Credential): Carmen Clements MD. Scribe Attestation: Danilo Carey, scribed for Carmen Clements MD. on 01/19/19 at 0035. Scribe Documentation Reviewed: Yes Provider Attestation: The documentation as recorded by the Danilo persaud accurately reflects the service I personally performed and the decisions made by me, Carmen Clements MD. Status of Scribe Document: Viewed
[2019-01-18 04:51] VITALS: BP 135/73
== END 2019-01-18 04:47 | disposition home or self-care (01) ==
LOC: ED 03:19
DX: M54.5 Low back pain (principal); I25.10 Atherosclerotic heart disease of native coronary artery without angina pectoris; E78.00 Pure hypercholesterolemia, unspecified; I10 Essential (primary) hypertension; I34.0 Nonrheumatic mitral (valve) insufficiency; K21.9 Gastro-esophageal reflux disease without esophagitis; N40.0 Benign prostatic hyperplasia without lower urinary tract symptoms; Z95.2 Presence of prosthetic heart valve; Z79.01 Long term (current) use of anticoagulants; Z79.82 Long term (current) use of aspirin; Z79.899 Other long term (current) drug therapy
CPT/HCPCS: 96372; 99282; J1885

== ENCOUNTER 2019-02-22 22:51 | Emergency (ER) | payer MEDICARE, BC ==
--- OUTSIDE RECORDS SUMMARY | 2019-02-22 23:02 | XMS REPORT | Summary of Care ---
:1935 Author Organization [facility] Address [address] [address] Care Team Providers Name Role Phone Daron Lester Robert Primary Care Provider Reason for Visit Reason Comments Coronary Artery Disease c/o pressure occasionally in chest Encounter Details Date Type Department Care Team Description 02/07/2019 Office Visit [facility] Timmy Oliver, Coronary artery disease of [place] artery of [place] heart with stable angina pectoris (HCC) (Primary Dx); 1 [facility] Perry MD Essential hypertension; [address] [id number] [address]Y S/P AVR [phone] [address] [id number] Allergies No Known Allergiesdocumented as of this encounter (statuses as of 02/07/2019) Medications Medication Sig Dispensed Refills Start Date [...] TabIndications: mouth EVERY Stable angina (HCC) BEDTIME. losartan (COZAAR) 50 MG TAKE 1 TAB BY 90 Tab 1 01/26/2018 Active Oral Tab MOUTH DAILY. ticagrelor (BRILINTA) Take 1 Tab by 60 Tab 11 02/10/2018 Active 90 MG Oral Tab mouth TWICE DAILY. Saw [place] 1000 MG Take by mouth 0 Active Oral Cap DAILY. Cyanocobalamin (VITAMIN Take by mouth 0 Active B 12 PO) DAILY. Pyridoxine HCl (B-6 PO) Take by mouth [address] 1 Tab 25 Tab 5 02/16/2018 Active (NITROSTAT) 0.4 MG under tongue Sublingual SL Tab EVERY FIVE MINUTES NEEDED for chest pain. finasteride (PROSCAR) 5 TAKE 1 TABLET 90 [...] 11/06/2018 Active MG Oral Tab mouth DAILY. donepezil (ARICEPT) 5 TAKE 1 TABLET 30 Tab 2 01/02/2019 Active MG Oral Tab BY MOUTH EVERY DAY Tamsulosin HCl (FLOMAX) TAKE 1 CAPSULE 30 Cap 2 01/11/2019 Active 0.4 MG Oral Cap BY MOUTH EVERY BEDTIME finasteride (PROSCAR) 5 TAKE 1 TABLET 30 Tab 11 01/29/2019 Active MG Oral Tab BY MOUTH EVERY DAY documented as of this encounter (statuses as of 02/07/2019) Active Problems Problem Noted Date Claudication 10/25/2018 [...] hyperlipidemia 10/18/2014 GERD (gastroesophageal reflux disease) 10/18/2014 Coronary artery disease of [place] artery of [place] heart with stable 2014 angina pectoris Overview: S/P CABG x 1 10/02/2014 Overview: 1990s Carotid artery stenosis 10/02/2014 Overview: 07/05/15: Carotid Duplex ([facility], [place], [place], [place]) Conclusion: 1. No hemodynamically significant stenosis of the right internal carotid artery. 2. The left internal carotid artery has a possible 50-70% stenosis. The proximal right common carotid artery has elevated velocities, suggesting a possible proximal stenosis but this is not visualized on this ultrasound. 3. Vertebral artery flow was antegrade bilaterally 10/22/13: Carotid Duplex ([facility]) Plaque posterior surface EUNICE with mild stenosis, 15-39% Plaque proximal LICA with moderate stenosis 40-59%. Mild stenosis LECA Antegrade flow both vertebral arteries. Hypogonadism male 11/11/2011 Benign prostatic hyperplasia 09/10/2008 Overview: Dr Cortes [facility] documented as of this encounter (statuses as of 02/07/2019) Resolved Problems Problem Noted Date Resolved Date [...] seen and reviewed the study with the entry table operator and agree with the above documentation. 10/29/15: [...] regurgitation Moderate pulmonic regurgitation No pericardial effusion. DC (pulmonary regurgitation) 02/03/2015 10/18/2018 Overview: 01/27/16: Echocardiogram Pulmonic Valve Pulmonic valve leaflets are flexible There is mild pulmonic regurgitation (may be underestimated). Abnormal nuclear stress test 10/24/2014 10/20/2017 Precordial pain 10/24/2014 10/20/2017 Sun-damaged skin 10/09/2014 10/20/2017 Dyslipidemia 10/02/2014 10/20/2017 Chest pain 10/02/2014 10/18/2014 Urgency of urination 09/10/2008 11/11/2011 Incomplete bladder emptying 09/10/2008 11/11/2011 documented as of this encounter (statuses as of 02/07/2019) Immunizations Name Administration Dates Next Due Depo [...] Sign Reading Time Taken Comments Blood Pressure 112/70 02/07/2019 9:13 AM EDT Pulse 64 02/07/2019 9:13 AM EDT Temperature - - Respiratory Rate - - Oxygen Saturation 97% 02/07/2019 9:13 AM EDT Inhaled Oxygen Concentration - - Weight 77.6 kg (171 lb) 02/07/2019 9:13 AM EDT Height 180.3 cm (5' 11") 02/07/2019 9:13 AM EDT Body Mass Index 23.85 02/07/2019 9:13 AM EDT documented in this encounter Progress Notes Timmy Oliver MD - 02/07/2019 9:00 AM EDT PATIENT: Jayy Kee : 1935 DATE OF SERVICE: 02/07/2019 CHIEF COMPLAINT: Chief Complaint Patient presents with Coronary Artery Disease c/o pressure occasionally in chest Subjective HISTORY OF PRESENT ILLNESS: Jayy Kee is a 83-y.o. male. JEANNE Hope is here for follow-up visit. Coronary artery disease: He has been doing well overall but mentions that once in a while he would notice discomfort in the chest. He notices if he is lifting something really heavy that he should not be lifting. This is not really bothersome and maybe occurs once or twice a week. It is not affecting his quality of life limiting his physical activities in any way. He mentions that this is been present for the last few months, probably since he came back from [place]. Status post aortic valve replacement: He denies any pedal edema, orthopnea or PND symptoms. He denies any palpitations or racing of the heart. Hypertension: Blood pressure has been well controlled. Past Medical/cardiac history: 1. CAD: s/p CABG times one-left internal mammary artery to left anterior descending at [facility] in [facility]. Repeat cath in October 2015. Used to be on atenolol. But it was stopped when he was in [place] after a fainting spell. He had a cath pre-AVR in October 2016, which revealed KIRKLAND-LAD anastomotic lesion, which was positive by FFR, however no re-do CABG was performed during the AVR. Later he underwent coronary angiography and bypass angiography in January 2018 because of worsening anginal symptoms. At that time a stent was placed at the anastomotic site lesion. 2. hypertension, dyslipidemia, 3. PVD with carotid stenosis. 4. 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 Past Medical History: Diagnosis Date Actinic keratosis of multiple sites of head and neck Basal cell carcinoma 12/23/14 right mid back BPH (benign prostatic hyperplasia) CVA (cerebral vascular accident) (HCC) November 2015; residual balance problems Low testosterone Skin cancer Squamous cell carcinoma Right forearm 2013 Squamous cell carcinoma 09/06/2012 Right Pre auricular-in situ Urinary frequency Family History Problem Relation Age of Onset Heart Mother Heart Father Heart Brother Skin Cancer Brother Heart Maternal Aunt Heart Maternal Uncle Heart Paternal Aunt Heart Paternal Uncle Cancer Paternal Grandfather Heart Brother Skin Cancer Brother Current Outpatient Medications Medication Sig amLodipine (NORVASC) [...] DAILY. donepezil (ARICEPT) 5 MG Oral Tab TAKE 1 TABLET BY MOUTH EVERY DAY finasteride (PROSCAR) 5 MG Oral Tab TAKE 1 TABLET BY MOUTH EVERY DAY finasteride (PROSCAR) 5 MG Oral Tab TAKE [...] Take 1 Tab by mouth DAILY. Saw [place] 1000 MG Oral Cap Take by mouth DAILY. Tamsulosin HCl (FLOMAX) 0.4 MG Oral Cap TAKE 1 CAPSULE BY MOUTH EVERY BEDTIME ticagrelor (BRILINTA) 90 MG Oral Tab Take 1 Tab by mouth TWICE DAILY. No current facility-administered medications for this visit. No Known Allergies Social History Socioeconomic History Marital status: Spouse [...] file Gets together: Not on file Attends roman catholic service: Not on file Active member of [...] Social History Narrative September 2015: [place] in [place] Lives in 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 Objective PHYSICAL EXAM: VITALS: BP 112/70 | Pulse 64 | Ht 5' 11" (1.803 m) | Wt 171 lb (77.6 kg) | SpO2 97% | BMI 23.85 kg/m Body mass index is 23.85 kg/m. Physical Exam Constitutional: oriented to person, place, and time. General appearance: Not in distress. well groomed. Body habitus: Normal Eyes: No redness, discharge. No Xanthelasma. Neck: Neck supple. No JVP Cardiovascular: Palpation: No RV heave. No palpable S3 or S4. No palpable thrills. Auscultation: regular rhythm. no gallop and no friction rub. No murmur heard. no pedal edema Pulmonary/Chest: No stridor. Normal respiratory effort. Auscultation: no wheezes. no crackles. Abdominal: Soft. No rebound, guarding and no masses or tenderness. Neurological: alert and oriented to person, place, and time. Balance is poor. Was not able to perform tandem walk. no gross focal neurological deficits. Musculoskeletal: Gait: poor balance Can not undergo exercise testing if needed. Extremities: No clubbing or cyanosis. Psychiatric exam: Normal affect Normal mood appropriate to circumstances. ASSESSMENT / IMPRESSION: 1. Coronary artery disease: He does have anginal symptoms but these are not lifestyle limiting in any way. He is on 2 antianginal medications and I believe we do not need to uptitrate the dose or add anothermedication at this time given the nature of the symptoms is very mild. His LDL was 72 even though he is on a low dose of Crestor. We will continue current dose of Crestor. 2. Prostatic aortic valve: Again reminded about the need for antibiotic prophylaxis prior to any dental work. Clinically well function is normal. 3. Hypertension: At goal Follow-up in 6 months or sooner based on symptoms. Author: Timmy Oliver MD 02/07/2019 09:43 documented in this encounter Plan of Treatment Date Type Specialty Care Team Description 09/12/2019 Office Visit Cardiology Timmy Oliver MD [address] [address] [phone] Health Maintenance Due Date Last Done Comments HIV SCREENING 1950 ZOSTER IMMUNIZATION SERIES 09/16/1987 (1 of 2) MEDICARE ANNUAL WELLNESS 02/08/2018 02/08/2017, 11/06/2015, VISIT 11/06/2015, Additional history exists PNEUMOCOCCAL 65+YRS (2 of 2 02/08/2018 02/08/2017 - PPSV23) INFLUENZA VACCINE (#1) 2018 02/19/2018, 01/09/2018, 02/08/2017, Additional history exists DEPRESSION SCREENING 10/19/2019 10/18/2018 [...] Type Problems Progress Blood Pressure Blood Pressure 112/70 No [place], < 150/90 (02/07/2019 Daron Jones, 9:13 AM EDT) Note: This is an individualized [...] of this encounter Implants Implanted Type Area Fluorescent Solution Mixer Device Shelf Model / Identifier Expiration Serial / Lot Date Trifecta Valve 23mm With [employer] (Gt) - [id number] N/A: Aortic [facility] 03/06/2020 [id number] / Implanted: Qty: 1 on 11/22/2016 by Nestor Palacios MD at [facility] [employer] [id number] / . Synergy (Stent - [id number] [id number] / Implanted: Qty: 1 on 02/10/2018 by J Carlos Beavers MD at [facility] [employer] / [id number] documented as of this encounter Results Not on filedocumented in this encounter Visit Diagnoses Diagnosis Coronary artery disease of [place] artery of [place] heart with stable angina pectoris (HCC) - Primary Essential hypertension Unspecified essential hypertension S/P AVR Heart valve replaced by other means documented in this encounter Insurance Payer Benefit Plan / Subscriber ID Effective Dates Phone Address Type Group MEDICARE MEDICARE PART A & xxxxxxxxxxx 2002-Present Medicare B [employer] xxxxxxxxxxxx 2013-Present [employer] Guarantor Name Account Type Relation to Date of Phone Billing Address Patient Jayy Kee Personal/Family 1935 [id number] (Home) [place], [place] [phone] [id number] (Work) documented as of this encounter Advance Directives Code Status Date Activated Date Inactivated Comments Full Code 03/24/2016 2:27 PM 03/26/2016 8:14 PM Does patient have decision making capacity? yes Order discussed with: Patient I discussed all options and patient/surrogate requested and agreed to: Full Code
--- OUTSIDE RECORDS SUMMARY | 2019-02-22 23:02 | XMS REPORT | Summary of Care ---
:1935 Author Organization [facility] Address [address] [facility] [place] [address] Care Team Providers Name Role Phone [place] Primary Care Provider Reason for Referral Refer to Department Only (Routine) Status Reason Specialty Diagnoses / Referred By Referred To Procedures Contact Contact Authorized Physical Therapy Diagnoses Trochanteric bursitis, left hip Yves Chapa [facility] Physical MD Therapy 1 [facility] 1 [facility] [place] [address] [place] Phone: [phone] Phone: Reason for Visit Reason Comments Follow Up left troch bursa Encounter Details Date Type Department Care Team Description 01/18/2019 Office Visit [facility] - Yves Chapa Trochanteric bursitisMaria Teresa MD left hip (Primary Dx) [address] 1 [facility] [address] [place] [address] [place] [address] Allergies No Known Allergiesdocumented as of this encounter (statuses as of 01/18/2019) Medications Medication Sig Dispensed Refills Start Date [...] MG Oral Tab mouth TWICE DAILY. Saw [place] 1000 MG Take by mouth 0 Active [...] MG Oral Cap BY MOUTH EVERY BEDTIME Hospital, Clinic, or Other Ordered Dose Route Frequency Start Date End Date Status Facility Administered Medication methylPREDNISolone acetate 80 mg IX NOW 01/18/2019 Active (DEPO-MEDROL) injection 80 MG/ML documented as of this encounter (statuses as of 01/18/2019) Active Problems Problem Noted Date Claudication 10/25/2018 Pseudophakia, both eyes 01/05/2018 Disorder of refraction and accommodation 01/05/2018 S/P AVR 11/22/2016 Overview: 11/22/2016. Redo median sternotomy, aortic valve replacement with [facility] #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 No hemodynamically significant stenosis of the right internal carotid artery. 2. The left internal carotid artery has a possible 50-70% stenosis. The proximal right common carotid artery has elevated velocities, suggesting a possible proximal stenosis but this is not visualized on this ultrasound. 3. Vertebral artery flow was antegrade bilaterally 10/22/13: Carotid Duplex ([facility]) Plaque posterior surface EUNICE with mild stenosis, 15-39% Plaque proximal LICA with moderate stenosis 40-59%. Mild stenosis LECA Antegrade flow both vertebral arteries. 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 10/29/15: [...] regurgitation Moderate pulmonic regurgitation No pericardial effusion. ND (pulmonary regurgitation) 02/03/2015 10/18/2018 Overview: 01/27/16: Echocardiogram Pulmonic Valve Pulmonic valve leaflets are flexible There is mild pulmonic regurgitation (may be underestimated). Abnormal nuclear stress test 10/24/2014 10/20/2017 Precordial pain 10/24/2014 10/20/2017 Sun-damaged skin 10/09/2014 10/20/2017 Dyslipidemia 10/02/2014 10/20/2017 Chest pain 10/02/2014 10/18/2014 Urgency of urination 09/10/2008 11/11/2011 Incomplete bladder emptying 09/10/2008 11/11/2011 documented as of this encounter (statuses as of 01/18/2019) Immunizations Name Administration Dates Next Due Depo [...] - Temperature - - Respiratory Rate 16 01/18/2019 10:43 AM EDT Oxygen Saturation - - Inhaled Oxygen Concentration - - Weight 80.7 kg (178 lb) 01/18/2019 10:43 AM EDT Height 180.3 cm (5' 11") 01/18/2019 10:43 AM EDT Body Mass Index 24.83 01/18/2019 10:43 AM EDT documented in this encounter Progress Notes Yves Chapa MD - 01/18/2019 10:30 AM EDT PATIENT: Jayy Kee : 1935 DATE OF SERVICE: 01/18/2019 SUBJECTIVE: Jayy Kee is a 83-y.o. male. Here for follow up of left troch bursitis. He has improved, but still has some pain there. OBJECTIVE: Resp 16 | Ht 5' 11" (1.803 m) | Wt 178 lb (80.7 kg) | BMI 24.83 kg/m Mild peritroch tenderness ASSESSMENT: ICD-9-CM ICD-10-CM 1. Trochanteric bursitis, left hip 726.5 M70.62 INJECTION, JOINT SHOUDLER HIP KNEE OR BURSA REFER TO PHYSICAL THERAPY / REHAB PLAN: Repeat injection Start Physical therapy Author: Yves Chapa MD 01/18/2019 10:53 Portions of this note were made with voice recognition software documented in this encounter Plan of Treatment Date Type Specialty Care Team Description 02/07/2019 Office Visit Cardiology Timmy Oliver MD [address] [address] [phone] Name Type Priority Associated Diagnoses Order Schedule INJECTION, JOINT Procedures Routine Trochanteric bursitis, Ordered: 2018 SHOUDLER HIP KNEE OR left hip BURSA Name Type Priority Associated Diagnoses Order Schedule REFER TO PHYSICAL Referral Routine Trochanteric bursitis, Ordered: 2018 THERAPY / REHAB left hip Health Maintenance Due Date Last Done Comments [...] Progress Blood Pressure Blood Pressure 130/70 No [place], < 150/90 (11/21/2018 Daron Jones, 11:37 AM [...] of this encounter Implants Implanted Type 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 03/06/2020 [id number] / Implanted: Qty: 1 on 11/22/2016 by Nestor Palacios MD at [facility] [employer] [id number] / 2. Synergy (Stent - [id number] [id number] / Implanted: Qty: 1 on 02/10/2018 by J Carlos Beavers MD at [facility] [employer] / [id number] documented as of this encounter Results Not on filedocumented in this encounter Visit Diagnoses Diagnosis Trochanteric bursitis, left hip - Primary documented in this encounter Insurance Payer Benefit Plan / Subscriber ID Effective Dates Phone Address Type Group MEDICARE MEDICARE PART A & xxxxxxxxxxx 2002-Present Medicare B [employer] xxxxxxxxxxxx 2013-Present [employer] Guarantor Name Account Type Relation to Date of Phone Billing Address Patient Jayy Kee Personal/Family 1935 [address] (Home) [place], [place] [phone] (Work) documented as of this encounter Advance Directives Code Status Date Activated Date Inactivated Comments Full Code 03/24/2016 2:27 PM 03/26/2016 8:14 PM Does patient have decision making capacity? yes Order discussed with: Patient I discussed all options and patient/surrogate requested and agreed to: Full Code
--- NOTE | 2019-02-22 23:15 | ED ---
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 This morning, patient states he had brief episode of dizziness. Besides that, states that he felt fine during the day. Patient denies dizziness or light headedness currently. Symptoms aggravated by nothing. Symptoms alleviated by nothing. States he has not had issues with his balance before. - History Of Current Complaint Stated Complaint: DIZZINESS/VOMITTING PER EMS Time Seen by Provider: 02/22/19 23:08 Hx Obtained From: Patient Onset/Duration: Resolved Aggravating Factor(s): Nothing Alleviating Factor(s): Nothing - Allergies/Home Medications Allergies/Adverse Reactions: Allergies Allergy/AdvReac Type Severity Reaction Status Date / Time No Known Allergies Allergy Verified 01/18/19 03:41 PMH/Surg Hx/FS Hx/Imm Hx Endocrine/Hematology History: Denies: Hx Diabetes Cardiovascular History: Reports: Hx Angina, Hx Cardiomegaly, Hx Coronary Artery Disease, Hx Hypercholesterolemia, Hx Hypertension, Hx Valvular Heart Disease - aortic valve insufficiency, moderate to severe mitral regurgitation Denies: Hx Pacemaker/ICD GI History: Reports: Hx Gastroesophageal Reflux Disease, Other GI Disorders - constipation History: Reports: Hx Benign Prostatic Hyperplasia Denies: Hx Renal Disease Sensory History: Reports: Hx Contacts or Glasses, Hx Hearing Aid Opthamlomology History: Reports: Hx Contacts or Glasses Psychiatric History: Denies: Hx Panic Disorder - Cancer History Cancer Type, Location and Year: skin cancer (left zuniga); s/p biopsy - Surgical History Surgery Procedure, Year, and Place: GALLBLADDER. CATARACTS. OPEN HEART 1996. open heart with valve replacment 2017 Infectious Disease History: Denies: Traveled Outside the [place] in Last 30 Days - Family History Known Family History: Positive: Cardiac Disease - parents and grandparents, Other - stroke - Social History Alcohol Use: Daily Alcohol Amount: wine before dinner, a few times a week Substance Use Type: Reports: None Hx Tobacco Use: No Smoking Status (MU): Never Smoked Tobacco Review of Systems Positive: Vomiting Neurological: Negative - light headedness, Other - Dizziness Positive: Weakness - bilateral lower extremity All Other Systems Reviewed And Are Negative: Yes Physical Exam - Summary Physical Exam Summary: Appearance: Elderly male lying in bed comfortably in no acute distress Skin: Warm, dry, no obvious rash Eyes: sclera anicteric, no conjunctival pallor ENT: mucous membranes moist, pharynx appears normal Neck: Supple, nontender Respiratory: Clear to auscultation, no signs of respiratory distress Cardiovascular: Normal S1, S2. No murmurs. Normal distal pulses in tibial and radial bilaterally. Abdomen: Soft, nontender, normal active bowel sounds present Musculoskeletal: Normal, Strength/ROM Intact Neurological: A&Ox3, awake and alert, mentation is normal, speech is fluent and appropriate, Level of consciousness nml. The patient is alert and oriented. Cranial nerves are grossly intact. Gaze is conjugate and without nystagmus. Peripheral vision is intact to confrontation. There are no gross sensory abnormalities to light touch. Finger to nose testing is normal. Patient was able to get up to standing position without any obvious truncal ataxia. His balance is not very good but apparently this is his baseline. No occurrence of vertigo when he stood up. Psychiatric: affect is normal, does not appear anxious or depressed GCS: 15 Triage Information Reviewed: Yes Vital Signs Reviewed: Yes Procedures - Sedation Patient Received Moderate/Deep Sedation with Procedure: No Diagnostics - Laboratory Result Diagrams: 02/22/19 23:33 02/22/19 23:33 Lab Statement: Any lab studies that have been ordered have been reviewed, and results considered in the medical decision making process. - CT Brain CT Interpretation Completed By: Radiologist Summary of CT Findings: No acute intracranial pathology. ED physician has reviewed this report. - EKG 2328 Cardiac Rate: NL EKG Rhythm: Sinus Rhythm Summary of EKG Findings: NSR at 57 BPM, P waves, QRS complex, and T waves are within normal limits, T waves and intervals are normal, no ischemic changes. This is a normal EKG. 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 Sx have resolved upon arrival to ED. States he has not had issues with his balance in the past. Upon exam, the patient's finger to nose testing is normal. Patient was able to get up to standing position without any obvious truncal ataxia. His balance is not very good but apparently this is his baseline. No occurrence of vertigo when he stood up. Bloodwork results with no significant abnormalities except for RBC 3.65, Hgb 120., Hct 35, MCV 97 , MCH 33, MPV 6.9, BUN/creatinine 25.8, glucose 113, calcium 8.5, total protein 6.1. An EKG shows NSR at 57 BPM, P waves, QRS complex, and T waves are within normal limits, T waves and intervals are normal, no ischemic changes. This is a normal EKG. CT Brain shows, per radiologist: No acute intracranial pathology. In the ED course, the patient was given normal saline 1 L IV fluids. Patient will be discharged home with prescription for meclizine and follow up from his primary care provider. Patient was instructed to return to Emergency Department for new or worsening symptoms. Patient understands and is agreeable to this plan. - Diagnoses Provider Diagnoses: Vertigo Discharge ED - Sign-Out/Discharge Documenting (check all that apply): Patient Departure - Discharge - Discharge Plan Condition: Good Disposition: HOME Prescriptions: Meclizine TAB* [Antivert 12.5 TAB*] 25 mg PO TID PRN #15 tab PRN Reason: Dizziness Patient Education Materials: Benign Paroxysmal Positional Vertigo (ED) Referrals: Daron Lester MD [Primary Care Provider] - If Needed Additional Instructions: This condition may wax and wane, usually over a period of a few days to a week. Be careful standing up so you don't fall. You can take the meclizine as needed to help control symptoms. - Billing Disposition and Condition Condition: GOOD Disposition: Home - Attestation Statements Document Initiated by Marnie: Yes Documenting Scribe: Teri Amin Provider For Whom Marnie is Documenting (Include Credential): Lukas Acosta MD Scribe Attestation: Teri Carey, scribed for Lukas Acosta MD on 02/23/19 at 0217. Scribe Documentation Reviewed: Yes Provider Attestation: The documentation as recorded by the Teri persaud accurately reflects the service I personally performed and the decisions made by me, Lukas Acosta MD Status of Scribkayden Document: Viewed
[2019-02-22 23:39] LABS: ABS Eosinophils 0.1 10^3/ul (0-0.6); ABS Monocytes 0.5 10^3/ul (0-0.8); ABS Neutrophils 3.1 10^3/ul (1.5-7.7); Eosinophil % 2.5 %; Hematocrit 35 % (42-52); Lymphocyte % 20.6 %; Mean Corpuscular HGB Conc 34 g/dL (31-36); Mean Corpuscular Hemoglobin 33 pg (27-31); Mean Corpuscular Volume 97 fL (80-94); Mean Platelet Volume 6.9 fL (7.4-10.4); Platelet Count 179 10^3/uL (150-450); Red Blood Count 3.65 10^6 /uL (4.18-5.48); Red Cell Distribution Width 13 % (10-15); White Blood Count 4.7 10^3/uL (3.5-10.8)
[2019-02-22 23:57] LABS: Albumin 3.6 g/dL (3.2-5.2); Albumin/Globulin Ratio 1.4 (1-3); BUN/Creatinine Ratio 25.8 (8-20); Calcium 8.5 mg/dL (8.6-10.3); EGFR African American 94.4 (>60); Globulin 2.5 g/dL (2-4); Potassium 3.6 mmol/L (3.5-5.0); Total Bilirubin 0.3 mg/dL (0.2-1.0); Total Protein 6.1 g/dL (6.4-8.9)
[2019-02-23 01:04] VITALS: BP 126/73
== END 2019-02-23 00:50 | disposition home or self-care (01) ==
LOC: ED 22:51
DX: R42 Dizziness and giddiness (principal); R11.10 Vomiting, unspecified; R53.1 Weakness; I10 Essential (primary) hypertension; Z95.1 Presence of aortocoronary bypass graft; Z95.2 Presence of prosthetic heart valve; R00.1 Bradycardia, unspecified
CPT/HCPCS: 36415; 70450; 80053; 84484; 85025; 93005; 99282